=== PATIENT | male | born 1950 | race Caucasian/White ===

== ENCOUNTER 2021-02-25 12:50 | Outpatient (CLI) | payer MEDICARE, SELFPAY ==
--- NOTE | ~2021-02-25 | US_ITS ---
EXAMINATION: US carotid duplex BI DATE: 02/25/2021 13:41 INDICATION: Atherosclerosis. TECHNIQUE: Grayscale, color Doppler, and pulsed Doppler images of the cervical carotid arteries were obtained. The degree of vessel stenosis is placed in one of the following categories: normal, <50%, 5 0-69%, >=70% but less than near-occlusion, near-occlusion, or total occlusion. Note that percent sten osis relative to normal distal artery lumen diameter is indirectly measured from velocity measurement s as described by Alec, et al. Radiology 2003; 229:340-346. Notes: Normal: Peak systolic velocity <125 centimeters/sec and no plaque <50%. Peak systolic velocity <125 ( EDV <40; ICA/CCA PSV ratio <2.0; used these factors only a tandem lesions or low cardiac output or co ntralateral disease) 50-69 %: PSV 125-230 (EDV 40-100; ratio 2-4) >= 70% but less than near occlusion: PSV greater than 230 (EDV > 100; ratio> 4.0) Near Occlusion: PSV that is variable; markedly narrowed lumen Occlusion: Absent flow on color/spectral Doppler and no lumen on eubanks scale. COMPARISON: None. FINDINGS: RIGHT: The right common carotid artery (CCA) peak systolic velocity (PSV) is 86 cm/s. The right internal car otid artery (ICA) PSV is 114 cm/s. The right ICA end-diastolic velocity (EDV) is 44 cm/s. The right I CA/CCA PSV ratio is 1.3. The external carotid artery (ECA) PSV is 194 cm/s. There is antegrade flow i n the right vertebral artery. LEFT: The left CCA PSV is 98 cm/s. The left ICA PSV is 79 cm/s. The left ICA EDV is 22 cm/s. The left ICA/C CA PSV ratio is 0.8. The ECA PSV is 284 cm/s. There is antegrade flow in the left vertebral artery. IMPRESSION: 1. Less than 50% stenosis in the right internal carotid artery by sonographic criteria. 2. Less than 50% stenosis in the left internal carotid artery by sonographic criteria. Reviewed, dictated and finalized at location A. IMPRESSION: 1. Less than 50% stenosis in the right internal carotid artery by sonographic eliu jeffery. 2. Less than 50% stenosis in the left internal carotid artery by sonographic curtis calderon.
== END 2021-02-25 12:51 | disposition home or self-care (01) ==
PROVIDERS: PCP Internal Medicine; Visit Provider Internal Medicine
DX: R09.89 Other specified symptoms and signs involving the circulatory and respiratory systems (principal)
CPT/HCPCS: 93880

== ENCOUNTER 2022-12-20 08:23 | Outpatient (CLI) | payer MEDICARE, SELFPAY ==
[2022-12-20 09:16] LABS: Anion Gap 0 mmol/L (8-16); Blood Urea Nitrogen 15 mg/dL (9-20); Calcium 9.1 mg/dL (8.4-10.2); Carbon Dioxide 35 mmol/L (22-30); Chloride 99 mmol/L (98-107); Cholesterol 120 mg/dL (0-200); Estimated Glomerular Filt Rate > 60; Glucose 133 mg/dL (65-110); HDL Direct 53 mg/dL; Potassium 3.1 mmol/L (3.4-5.0); Sodium 134 mmol/L (137-145); Triglycerides 89 mg/dL (<150)
[2022-12-20 09:28] LABS: LDL Cholesterol Direct 42 mg/dL
[2022-12-20 09:40] LABS: Free T4 Free Thyroxine 1.51 ng/mL (0.78-2.19)
== END 2022-12-20 08:24 | disposition home or self-care (01) ==
LOC: ANHLAB 08:25
PROVIDERS: PCP Internal Medicine; Visit Provider Internal Medicine
DX: I10 Essential (primary) hypertension (principal); Z13.29 Encounter for screening for other suspected endocrine disorder; Z79.899 Other long term (current) drug therapy; E78.2 Mixed hyperlipidemia; E11.9 Type 2 diabetes mellitus without complications
CPT/HCPCS: 36415; 80048; 80061; 83036; 84439; 84443

== ENCOUNTER 2023-01-04 10:43 | Outpatient (CLI) | payer MEDICARE, SELFPAY ==
[2023-01-04 15:26] LABS: Potassium 3.2 mmol/L (3.4-5.0)
== END 2023-01-04 10:44 | disposition home or self-care (01) ==
LOC: ANHLAB 10:44
PROVIDERS: PCP Internal Medicine; Visit Provider Internal Medicine
DX: E87.6 Hypokalemia (principal)
CPT/HCPCS: 36415; 84132

== ENCOUNTER 2023-03-17 09:30 | Outpatient (CLI) | payer MEDICARE, SELFPAY ==
--- NOTE | ~2023-03-17 | US_ITS ---
Ultrasound of the Abdominal Aorta INDICATION: Abdominal aortic aneurysm TECHNIQUE: Grayscale, color Doppler, and pulsed Doppler images of the aorta and common iliac arteries were obtained. COMPARISON: None. FINDINGS: Maximum vascular dimensions are as follows: Proximal aorta: 2.1 cm Mid aorta: 1.7 cm Distal aorta: 1.5 cm Right common iliac artery: 1.0 cm Left common iliac artery: 0.8 cm There is no evidence of abdominal aortic aneurysm. IMPRESSION: No abdominal aortic aneurysm. Reviewed, dictated and finalized at location M.
--- NOTE | ~2023-03-17 | US_ITS ---
EXAMINATION: US carotid duplex BI DATE: 03/17/2023 11:04 INDICATION: Occlusion and stenosis of unspecified carotid artery TECHNIQUE: Grayscale, color Doppler, and pulsed Doppler images of the cervical carotid arteries were obtained. The degree of vessel stenosis is placed in one of the following categories: normal, <50%, 5 0-69%, >=70% but less than near-occlusion, near-occlusion, or total occlusion. Note that percent sten osis relative to normal distal artery lumen diameter is indirectly measured from velocity measurement s as described by Alec, et al. Radiology 2003; 229:340-346. COMPARISON: 02/25/2021 FINDINGS: RIGHT: The right common carotid artery (CCA) peak systolic velocity (PSV) is 83 cm/s. The right internal car otid artery (ICA) PSV is 68 cm/s. The right ICA end-diastolic velocity (EDV) is 17 cm/s. The right IC A/CCA PSV ratio is 0.8. Grayscale and color Doppler images yield an estimate of <50% diameter reducti on from plaque in the ICA. The external carotid artery (ECA) PSV is 170 cm/s. There is antegrade flow in the right vertebral artery. LEFT: The left CCA PSV is 92 cm/s. The left ICA PSV is 63 cm/s. The left ICA EDV is 23 cm/s. The left ICA/C CA PSV ratio is 0.7. Grayscale and color Doppler images yield an estimate of <50% diameter reduction from plaque in the ICA. The ECA PSV is 220 cm/s. There is antegrade flow in the left vertebral artery . IMPRESSION: 1. <50% stenosis in the right internal carotid artery. 2. <50% stenosis in the left internal carotid artery. Reviewed, dictated and finalized at location A.
== END 2023-03-17 09:31 | disposition home or self-care (01) ==
PROVIDERS: PCP Internal Medicine; Visit Provider Internal Medicine Cardiovascular Disease
DX: Z13.6 Encounter for screening for cardiovascular disorders (principal); R09.89 Other specified symptoms and signs involving the circulatory and respiratory systems; I65.23 Occlusion and stenosis of bilateral carotid arteries
CPT/HCPCS: 76706; 93880

== ENCOUNTER 2023-10-03 10:16 | Outpatient (CLI) | payer OTHER, SELFPAY ==
[2023-10-03 10:43] LABS: Basophils Absolute Auto 0.1 K/mm3 (0.0-0.1); Basophils Percent Auto 1.1 % (0.2-1.2); Eosinophils Absolute Auto 0.1 K/mm3 (0-0.3); Eosinophils Percent Auto 1.1 % (0-4.4); Hematocrit 49.3 % (42.0-52.0); Immature Granulocyte Percent A 1.2 % (0-0.5); Lymphocytes Absolute Auto 2.03 K/mm3 (0.9-3.2); Lymphocytes Percent Auto 24.6 % (18.3-44.2); Mean Corpuscular HGB Conc 34.5 g/dl (32-36); Mean Corpuscular Hemoglobin 30.4 pg (26-34); Mean Platelet Volume 10.9 fl (7.4-10.4); Monocytes Absolute Auto 0.6 K/mm3 (0.1-0.6); Monocytes Percent Auto 7.6 % (2.6-8.5); Neutrophils Absolute Auto 5.3 K/mm3 (1.3-6.7); Neutrophils Percent Auto 64.4 % (45.5-73.1); Platelet Count Result 207 k/mm3 (150-375); Red Cell Distribution Width 13.2 % (11.5-14.5); White Blood Count 8.3 K/mm3 (4.5-10.0)
[2023-10-03 11:00] LABS: Alanine Aminotransferase 22 U/L (6-50); Albumin Level 4.2 g/dL (3.5-5.1); Alkaline Phosphatase 153 U/L (38-126); Anion Gap 4 mmol/L (4-12); Aspartate Amino Transferase 22 U/L (17-59); Bilirubin,Total 1.3 mg/dL (0.2-1.3); Blood Urea Nitrogen 15 mg/dL (9-20); Calcium 9.4 mg/dL (8.4-10.2); Carbon Dioxide 31 mmol/L (22-30); Chloride 101 mmol/L (98-107); Estimated Glomerular Filt Rate > 60; Glucose 187 mg/dL (65-110); Potassium 3.5 mmol/L (3.4-5.0); Sodium 136 mmol/L (137-145)
[2023-10-03 11:26] LABS: Free T4 Free Thyroxine 1.56 ng/mL (0.78-2.19)
[2023-10-03 17:57] LABS: Hemoglobin A1C 6.9 % (<5.7)
[2023-10-03 22:10] LABS: Prostate Specific Antigen 0.3 ng/mL (< OR = 4.0)
== END 2023-10-03 10:17 | disposition home or self-care (01) ==
LOC: ANHLAB 10:20
PROVIDERS: PCP Internal Medicine; Visit Provider Internal Medicine
DX: E11.9 Type 2 diabetes mellitus without complications (principal); Z13.29 Encounter for screening for other suspected endocrine disorder; Z79.899 Other long term (current) drug therapy; Z12.5 Encounter for screening for malignant neoplasm of prostate; I10 Essential (primary) hypertension
CPT/HCPCS: 36415; 80053; 83036; 84153; 84439; 84443; 85025; G0103

== ENCOUNTER 2024-02-22 13:34 | Outpatient (CLI) | payer OTHER, SELFPAY ==
[2024-02-22 15:07] LABS: Alanine Aminotransferase 23 U/L (6-50); Alkaline Phosphatase 135 U/L (38-126); Anion Gap 9 mmol/L (4-12); Aspartate Amino Transferase 28 U/L (17-59); Blood Urea Nitrogen 20 mg/dL (9-20); Calcium 9.5 mg/dL (8.4-10.2); Carbon Dioxide 28 mmol/L (22-30); Chloride 98 mmol/L (98-107); Cholesterol 121 mg/dL (0-200); Estimated Glomerular Filt Rate > 60; Glucose 115 mg/dL (65-110); HDL Direct 58 mg/dL; Potassium 3.4 mmol/L (3.4-5.0); Sodium 135 mmol/L (137-145); Triglycerides 90 mg/dL (<150)
[2024-02-22 15:18] LABS: LDL Cholesterol Direct 47 mg/dL
[2024-02-22 15:25] LABS: Hemoglobin A1C 6.3 % (<5.7)
[2024-02-22 15:50] LABS: Creatinine Urine 150.7 mg/dL
[2024-02-22 15:54] LABS: MALB Creatinine Ratio 16.3 mg/g (0-30); Microalbumin Urine Random 24.6 mg/L (0-16.7)
== END 2024-02-22 13:35 | disposition home or self-care (01) ==
LOC: ANHLAB 13:39
PROVIDERS: PCP Internal Medicine; Visit Provider Internal Medicine
DX: E11.9 Type 2 diabetes mellitus without complications (principal); E78.5 Hyperlipidemia, unspecified; I10 Essential (primary) hypertension; I25.10 Atherosclerotic heart disease of native coronary artery without angina pectoris; Z00.00 Encounter for general adult medical examination without abnormal findings; Z79.899 Other long term (current) drug therapy
CPT/HCPCS: 36415; 80053; 80061; 82043; 83036

== ENCOUNTER 2024-07-01 09:22 | Outpatient (CLI) | payer OTHER, SELFPAY ==
[2024-07-01 09:46] LABS: Basophils Absolute Auto 0.1 K/mm3 (0.0-0.1); Basophils Percent Auto 1.3 % (0.2-1.2); Eosinophils Absolute Auto 0.1 K/mm3 (0-0.3); Eosinophils Percent Auto 1.2 % (0-4.4); Hematocrit 52.3 % (42.0-52.0); Hemoglobin 17.7 g/dL (14.0-18.0); Immature Granulocyte Absolute 0.09 K/mm3 (0.00-0.031); Lymphocytes Absolute Auto 2.53 K/mm3 (0.9-3.2); Lymphocytes Percent Auto 28.4 % (18.3-44.2); Mean Corpuscular HGB Conc 33.8 g/dl (32-36); Mean Corpuscular Hemoglobin 30.6 pg (26-34); Mean Corpuscular Volume 90.5 fl (80-100); Mean Platelet Volume 11.1 fl (7.4-10.4); Monocytes Absolute Auto 0.9 K/mm3 (0.1-0.6); Monocytes Percent Auto 9.9 % (2.6-8.5); Neutrophils Absolute Auto 5.2 K/mm3 (1.3-6.7); Neutrophils Percent Auto 58.2 % (45.5-73.1); Platelet Count Result 202 k/mm3 (150-375); Red Blood Count 5.78 M/mm3 (4.6-6.20); Red Cell Distribution Width 13.1 % (11.5-14.5); White Blood Count 8.9 K/mm3 (4.5-10.0)
[2024-07-01 10:00] LABS: Alanine Aminotransferase 21 U/L (6-50); Albumin Level 4.1 g/dL (3.5-5.1); Alkaline Phosphatase 139 U/L (38-126); Anion Gap 9 mmol/L (4-12); Aspartate Amino Transferase 22 U/L (17-59); Bilirubin,Total 1.4 mg/dL (0.2-1.3); Blood Urea Nitrogen 18 mg/dL (9-20); Carbon Dioxide 31 mmol/L (22-30); Chloride 97 mmol/L (98-107); Cholesterol 126 mg/dL (0-200); Estimated Glomerular Filt Rate > 60; Glucose 151 mg/dL (65-110); HDL Direct 57 mg/dL; Potassium 4.2 mmol/L (3.4-5.0); Sodium 137 mmol/L (137-145); Triglycerides 94 mg/dL (<150)
[2024-07-01 10:07] LABS: Hemoglobin A1C 6.7 % (<5.7)
[2024-07-01 10:11] LABS: LDL Cholesterol Direct 45 mg/dL
[2024-07-01 10:21] LABS: Free T4 Free Thyroxine 1.48 ng/dL (0.78-2.19)
[2024-07-01 10:57] LABS: Creatinine Urine 93.4 mg/dL
[2024-07-01 11:01] LABS: MALB Creatinine Ratio 12.6 mg/g (0-30); Microalbumin Urine Random 11.8 mg/L (0-16.7)
== END 2024-07-01 09:23 | disposition home or self-care (01) ==
LOC: ANHLAB 09:23
PROVIDERS: PCP Internal Medicine; Visit Provider Internal Medicine
DX: E78.5 Hyperlipidemia, unspecified (principal); I10 Essential (primary) hypertension; E11.9 Type 2 diabetes mellitus without complications; Z79.899 Other long term (current) drug therapy; Z13.29 Encounter for screening for other suspected endocrine disorder
CPT/HCPCS: 36415; 80053; 80061; 82043; 83036; 84439; 84443; 85025

== ENCOUNTER 2024-08-14 07:20 | Outpatient (CLI) | payer OTHER, SELFPAY ==
--- NOTE | ~2024-08-14 | US_ITS ---
EXAMINATION: US carotid duplex BI DATE: 08/14/2024 08:03 INDICATION: Occlusion and stenosis of unspecified carotid artery. TECHNIQUE: Grayscale, color Doppler, and pulsed Doppler images of the cervical carotid arteries were obtained. The degree of vessel stenosis is placed in one of the following categories: normal, <50%, 5 0-69%, >=70% but less than near-occlusion, near-occlusion, or total occlusion. Note that percent sten osis relative to normal distal artery lumen diameter is indirectly measured from velocity measurement s as described by Alec, et al. Radiology 2003; 229:340-346. COMPARISON: Ultrasound 03/17/2023 FINDINGS: RIGHT: The right common carotid artery (CCA) peak systolic velocity (PSV) is 81 cm/s. The right internal car otid artery (ICA) PSV is 116 cm/s. The right ICA end-diastolic velocity (EDV) is 43 cm/s. The right I CA/CCA PSV ratio is 1.4. Grayscale and color Doppler images yield an estimate of <50% diameter reduct ion from plaque in the ICA. There is antegrade flow in the right vertebral artery. LEFT: The left CCA PSV is 92 cm/s. The left ICA PSV is 120 cm/s. The left ICA EDV is 40 cm/s. The left ICA/ CCA PSV ratio is 1.3. Grayscale and color Doppler images yield an estimate of <50% diameter reduction from plaque in the ICA. There is antegrade flow in the left vertebral artery. IMPRESSION: 1. <50% stenosis in the right internal carotid artery. 2. <50% stenosis in the left internal carotid artery. Reviewed, dictated and finalized at location [] ES 7 8 TUTOR
--- OUTSIDE RECORDS SUMMARY | 2024-08-14 07:24 | XMS_ITS | Encounter Summary ---
Author Organization [facility] Address [address] [place] [address] Care Team Providers Care Desizing Machine Operator Name Role Phone Francisco Enriquez MD Primary Care Provider [phone] Encounter Details Date Type Department Care Team (Latest Contact Info) Description 12/04/2008 Outpatient Historical [facility], [address] Avni Bateman MD NO ADDRESS ON FILE Unspecified Essential Hypertension Social History Tobacco Use Types Packs/Day Years Used Date Smoking Tobacco: Never Assessed Sex and Gender Information Value Date Recorded Sex Assigned at Not on file Legal Sex Male 3:07 AM EQUINE VET Gender Identity Not on file Sexual Orientation Not on file documented as of this encounter Plan of Treatment Not on file documented as of this encounter Visit Diagnoses Diagnosis Unspecified essential hypertension documented in this encounter Care Teams Desizing Machine Operator Relationship Specialty Start Date End Date Francisco Enriquez MD PCP - General Student in an Organized Health Care Education/Training Program 06/20/17 documented as of this encounter
--- OUTSIDE RECORDS SUMMARY | 2024-08-14 07:24 | XMS_ITS | Encounter Summary ---
Author Organization [facility] Address 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 May We Leave Message At That Number : YES, LEAVE MESSAGE. Referring to: SLEEP STUDY [facility] ph: [phone] fax: [phone]. PLEASE SCHEDULE FOR: sleep study PATIENT DIAGNOSIS: . 780.57-SLEEP APNEA REQUESTED BY TELEPHONE: 's Response to Referral Request The requested referral is approved. Number of visits approved 3. ORDERING PHYSICIAN : KJ KELLY MD PRIORITY OF REFERRAL: AT PATIENT'S CONVENIENCE. OFFICE DIRECTOR OF CONTENT AND PROGRAMMING & PHONE: jeremiah [phone] FOR SCHEDULING USE ONLY FIRST ATTEMPT Date:JUN 21, 2007 Laverne Servin D 02:45 p Spoke with Patient. He will call back when he can get to his calendar SECOND ATTEMPT: Date:JUN 22, 2007 Bernadine Moulton A 04:13 p Left Message on Recorder. Sleep center closed as well LETTER SENT: Date JUN 25, 2007 Bernadine Moulton A 09:38 a Letter Sent to Patient. * Kj Kelly MD - 10/24/2007 5:54 PM CDT BLOOD PRESSURE: 124/86 Right Arm Sitting TEMPERATURE: 98.3??f Oral WEIGHT: 263lbs NURSE NAME: Batsheva Read ALLERGIES: No known drug allergies. TOBACCO USE Patient does not currently use tobacco. MEDICATIONS: Medication list current. CHIEF COMPLAINT Seen as a new patient to get established with the practice. general check up, pt stated he has few things he would like to discuss with you HISTORY: HISTORY: V70.0-ROUTINE GENERAL MEDICAL EXAMINATION concerned about skin tags and reported sleep apnea from PAST MEDICAL HISTORY: see patient sheet for review of med/all/pmh/psh/sh/fh/ros PHYSICAL EXAMINATION: CONSTITUTIONAL: GENERAL APPEARANCE: Healthy appearing patient in no distress. NECK/THYROID: Trachea midline. No thyroid enlargement, tenderness, or mass. No supraclavicular or cervical adenopathy. RESPIRATORY: Clear to auscultation and percussion. Normal respiratory effort. CARDIOVASCULAR: CARDIAC: Regular rhythm. No murmurs, rubs, or gallops. ARTERIAL: No aortic bruits. EDEMA/VARICOSITIES OF EXTREMITIES: No edema or varicosities. GASTROINTESTINAL: ABDOMEN: Soft, non-tender, without masses. Bowel sounds active. LIVER/SPLEEN/KIDNEY: No hepatosplenomegaly, tenderness or nodularity. Kidneys not palpable. GENITOURINARY: PROSTATE: Symmetrical and smooth with no nodularity or tenderness. cheilosis on lips, multiple skin tags ASSESSMENT/PLAN: 780.57-SLEEP APNEA LAB ORDERS: Order number: [id number] Test Ordered: SLEEP STUDY V70.0-ROUTINE GENERAL MEDICAL EXAMINATION MEDICATIONS: ECONAZOLE NITRATE EXTERNAL CREAME 1 %, apply twice daily, 30 Dispensed, 1 Fills, status: NEW PRESCRIPTION, 06/20/2007. LAB ORDERS: Order number: [id number] Test Ordered: COMPREHENSIVE METABOLIC PANEL & GFR 1112 Order number: [id number] Test Ordered: TSH (REFLEX FREE T4/FREE T3) 1727 Order number: [id number] Test Ordered: LIPID PANEL 1078 V76.44-SCREEN FOR CA OF PROSTATE LAB ORDERS: Order number: [id number] Test Ordered: PSA, TOTAL 1002 V76.51-SCREEN FOR CA OF COLON LAB ORDERS: Order number: [id number] Test Ordered: COLONOSCOPY SPECIALTY REFERRAL: DERMATOLOGY Dr. Jason Scott ph. [phone] fax: [phone]. HEALTH MAINTENANCE: LAST PROSTATE EXAM: 1999. DISCUSSED SMOKING: no. LAST TD: 1999 SEXUAL ACTIVITY DISCUSSED: no. SUBSTANCE ABUSE DISCUSSED: no. INJURY PREVENTION DISCUSSED: yes. DIET AND EXERCISE DISCUSSED: no. ADVANCED DIRECTIVES DISCUSSED: no. LAST DATE COLONOSCOPY: 1997?. LAST FLU VACCINE:no LAST PNEUMOCOCCAL:no Electronically Signed by: Kj Kelly MD on Wednesday, June 20, 2007 documented in this encounter Plan of Treatment Not on file documented as of this encounter Visit Diagnoses Not on filedocumented in this encounter Care Teams Traction Power Engineer Relationship Specialty Start Date End Date Francisco Enriquez MD PCP - General Student in an Organized Health Care Education/Training Program 06/20/17 documented as of this encounter
--- OUTSIDE RECORDS SUMMARY | 2024-08-14 07:24 | XMS_ITS | Encounter Summary ---
Author Organization [facility] Address [address] [place] [address] Care Team Providers Care Machine Binder Stripper Name Role Phone Francisco Enriquez MD Primary Care Provider [phone] Encounter Details Date Type Department Care Team (Late st Contact Info) Description 06/06/2007 Outpatient Historical [facility] Primary Care - [address] [place] [address] Kj Kelly MD [address] [facility] [address] [place], [place] [id number] Social History Tobacco Use Types Packs/Day Years Used Date Smoking Tobacco: Never Assessed Sex and Gender Information Value Date Recorded Sex Assigned at Not on file 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
--- OUTSIDE RECORDS SUMMARY | 2024-08-14 07:24 | XMS_ITS | Referral Summary ---
Author Organization [facility] Address [address] [place] [address] Care Team Providers Care Development Technical Lead Name Role Phone Gunjan Madison Unavailable Unavailable Source Comments [facility],non-owned Affiliates and Associated Physician Practices is amultiple site organization consisting of ambulatory clinics and hospital sitesin [place], [place], [place] and [place]. This disclosure is being madepursuant to the Care Everywhere program and may not contain all information available regarding this patient. Last updated 18.[facility] Allergies Active Allergy Reactions Criticality Noted Date Comments Lisinopril Other Low 01/05/2009 Medications * Be aware that medications may not be up to date on this document. Alwaysverify current medications with the patient. Medication Sig Dispensed Refills Start Date End Date Status atorvastatin (LIPITOR) 10 MG tabletIndications:T ype 2 diabetes mellitus without complication, without long-term current use of insulin ([facility]) Take 1 tablet by mouth once daily 90 tablet 4 04/15/2020 Active Blood Glucose Monitoring Suppl (ONE TOUCH ULTRA MINI) w/Device KIT Use 1 Each as directed 1 kit 12/17/2020 Active blood glucose (ONETOUCH ULTRA) test stripIndications:Ty pe 2 diabetes mellitus without complication, without long-term current use of insulin (HCC) Use 1 (one) strip once daily 100 strip 12/23/2020 Active metFORMIN ER 24hr (GLUCOPHAGE XR) 500 MG tabletIndications:T ype 2 diabetes mellitus without complication, without long-term current use of insulin (HCC) Take 2 (two) tablets by mouth 2 times daily 360 tablet 03/31/2021 Active glimepiride (AMARYL) 4 MG tabletIndications:T ype 2 diabetes mellitus without complication, without long-term current use of insulin (HCC) Take 1 (one) tablet by mouth 2 times daily after meals 180 tablet 03/31/2021 Active chlorthalidone (HYGROTON) 25 MG tabletIndications:E ssential (primary) hypertension Take 1 (one) tablet by mouth once daily 90 tablet 03/31/2021 Active losartan (COZAAR) 100 MG tabletIndications:E ssential (primary) hypertension Take 1 (one) tablet by mouth once daily Patient needs appointment 90 tablet 04/05/2021 Active Active Problems Patient Care Coordination No te Formatting of this note migh t be different from the original. Patient enrolled in EpxHTN program to record and monitor BP readings. Problem Noted Date Diagnosed Date Type 2 diabetes mellitus without complications 0 12/19/2016 Assessment & Plan (04/15/2020 5:49 PM SHELL MOLDING ROLLER BLAST OPERATOR): Doing much better. Continue current medications and advised on lifestyle modifications. Assessment & Plan (07/10/2019 10:05 PM SHELL MOLDING ROLLER BLAST OPERATOR): A1c significantly higher than normal for him, most likely due to dietary indiscretion and lack of activity. He is committed to improving this and will work on it for the next few months. Return in about 3 months (around 10/09/2019) for f/u DM. Assessment & Plan (08/13/2018 10:49 AM SHELL MOLDING ROLLER BLAST OPERATOR): A1c essentially the same as previously. Blood glucose improving at home with improved diet, but still above goal. Will increase glimepiride dose. Return in about 6 weeks (around 09/24/2018) for f/u HTN, f/u DM. Essential (primary) hypertension 12/19/2016 Assessment & Plan (04/15/2020 5:49 PM SHELL MOLDING ROLLER BLAST OPERATOR): Good control on current medications. Continue to monitor Assessment & Plan (07/10/2019 10:05 PM SHELL MOLDING ROLLER BLAST OPERATOR): Also higher than normal. Returning to higher dose of chlorthalidone. Continue to monitor at home. Return in about 3 months (around 10/09/2019) for f/u DM. Assessment & Plan (08/13/2018 10:50 AM SHELL MOLDING ROLLER BLAST OPERATOR): High today. Would prescribe amlodipine, but Mr. Peña has significant history of lower extremity edema, so may not be best option. Will refer to [facility] for now, and consider adding beta-marycruz or spironolactone at next visit, if needed. Obesity (BMI 30-39.9) 07/20/2015 Adenoma of large intestine 08/22/2014 Sleep apnea 06/20/2007 Overview (08/13/2018): On CPAP. Screen for colon cancer History of colon polyps Immunizations Name Administration Dates Next Due INFLUENZA VACCINE 02/27/2021 PNEUMOCOCCAL PPSV23 09/24/2018,10/04/2011 Pneumococcal Pcv13 Conj 03/17/2017 Social History Tobacco Use Types Packs/Day Years Used Date Smoking Tobacco: Never Smokeless Tobacco: Never Alcohol Use Standard Drinks/Week Comments Yes 2 (1 standard drink = 0.6 oz pur e alcohol) every 2-3 months Sex and Gender Information Value Date Recorded Sex Assigned at Not on file Gender Identity Not on file Sexual Orientation Not on file Last Filed Vital Signs Vital Sign Reading Time Taken Comments Blood Pressure 134/86 04/15/2020 3:33 PM SHELL MOLDING ROLLER BLAST OPERATOR Pulse 84 04/15/2020 3:33 PM SHELL MOLDING ROLLER BLAST OPERATOR Temperature 36.2 C (97.1 F) 04/15/2020 3:33 PM SHELL MOLDING ROLLER BLAST OPERATOR Respiratory Rate 12 09/19/2018 3:05 PM CDT Oxygen Saturation 98% 04/15/2020 3:33 PM SHELL MOLDING ROLLER BLAST OPERATOR Inhaled Oxygen Concentration - - Weight 107.6 kg (237 lb 3.2 oz) 04/15/2020 3:33 PM SHELL MOLDING ROLLER BLAST OPERATOR Height 167.6 cm (5' 6 ) 04/15/2020 3:33 PM SHELL MOLDING ROLLER BLAST OPERATOR Body Mass Index 38.29 04/15/2020 3:33 PM SHELL MOLDING ROLLER BLAST OPERATOR Plan of Treatment Not on file Goals Goal Patient Goal Type Associated Problems Recent Progress Patient-Stated? Author Blood Pressure < 140/90 Blood Pressure 134/86(2019 3:33 PM SHELL MOLDING ROLLER BLAST OPERATOR) Yes Gunjan Madison Note: Patient enrolled in EpxN program to track and monitor at home BP readings. Procedures Procedure Name Priority Date/Time Associated Diagnosis Comments EYE EXAM 09/03/2020 BASIC METABOLIC PANEL (CALCIUM TOTAL) Routine 05/20/2020 2:19 PM SHELL MOLDING ROLLER BLAST OPERATOR Essential (primary) hypertension HEMOGLOBIN A1C - POINT OF CARE (AMB) [facility] Routine 04/15/2020 Type 2 diabetes mellitus without complication, without long-term current use of insulin (HCC) ENDOSCOPY, COLON, SCREENING Routine 09/19/2018 1:54 PM CDT HEPATITIS C AB W RFLX VERIFICATION Routine 11/01/2017 1:23 PM CDT Need for hepatitis C screening test from Last 3 Months or Most Recently Relevant to Health Maintenance Results * EYE EXAM (09/03/2020) Anatomical Region Laterality Modality Other Narrative 09/03/2020 Ordered by an unspecified provider. Scanned Document SCANNING ONLY * (ABNORMAL) BASIC METABOLIC PANEL (CALCIUM TOTAL) (05/20/2020 2:19 PM SHELL MOLDING ROLLER BLAST OPERATOR) Glucose 126(H) 65 - 99 mg/dL [facility] INSURANCE BILL BUN 15 8 - 27 mg/dL [facility] INSURANCE BILL Creatinine 1.02 0.76 - 1.27 mg/dL [facility] INSURANCE BILL eGFR by MDRD 75 >59 mL/min/1.7 3 [facility] INSURANCE BILL eGFR by MDRD 87 >59 mL/min/1.7 3 [facility] INSURANCE BILL BUN/Creatinine Ratio 15 10 - 24 [facility] INSURANCE BILL Sodium 142 134 - 144 mmol/L [facility] INSURANCE BILL Potassium 4.0 3.5 - 5.2 mmol/L [facility] INSURANCE BILL Chloride 100 96 - 106 mmol/L [facility] INSURANCE BILL CO2 29 20 - 29 mmol/L [facility] INSURANCE BILL Calcium 9.9 8.6 - 10.2 mg/dL [facility] INSURANCE BILL Comment:FASTING Blood BLOOD SPECIMEN / Unknown 05/20/2020 2:19 PM SHELL MOLDING ROLLER BLAST OPERATOR 05/20/2020 Narrative Resulting Agency Comment [facility]: [facility] [address] [facility] [id number] Francisco Enriquez MD LAB - CHEMISTRY [facility] INSURANCE BILL [address] [facility] [place] [address] * HEMOGLOBIN A1C - POINT OF CARE (AMB) [facility] (04/15/2020) Hemoglobin A1c POCT 6.2 BLOOD SPECIMEN / Unknown 04/15/2020 Francisco Enriquez MD LAB - POINT OF CARE ORDERABLES * ENDOSCOPY, COLON, SCREENING (09/19/2018 1:54 PM CDT) Report Endoscopy POC _ Patient Name: Mauricio Peña Procedure Date: 09/19/2018 1:54 PM Date of : 1950 Admit Type: Outpatient Age: 68 Gender: Male Attending MD: Francia Prieto MD _ Procedure: Colonoscopy Indications: Surveillance: Personal history of adenomatous polyps on last colonoscopy > 3 years ago (2014) Providers: Francia Prieto MD (Doctor), Madeline Bland, RN Referring MD: Francisco Enriquez (Referring MD) Medicines: Monitored Anesthesia Care Complications: No immediate complications. _ Procedure: Pre-Anesthesia Assessment: - Prior to the procedure, a History and Physical was performed, and patient medications, allergies and sensitivities were reviewed. The patient's tolerance of previous anesthesia was reviewed. - The risks and benefits of the procedure and the sedation options and risks were discussed with the patient. All questions were answered and informed consent was obtained. After I obtained informed consent, the scope was passed under direct vision. Throughout the procedure, the patient's blood pressure, pulse, and oxygen saturations were monitored continuously. The Colonoscope was introduced through the anus and advanced to the cecum, identified by appendiceal orifice and ileocecal valve. The colonoscopy was performed without difficulty. The patient tolerated the procedure well. The quality of the bowel preparation was good. Impression: - Three 2 to 6 mm polyps in the sigmoid colon and in the transverse colon, removed with a jumbo cold forceps. Resected and retrieved. - Diverticulosis in the sigmoid colon. - The examination was otherwise normal on direct and retroflexion views. Findings: The perianal and digital rectal examinations were normal. Three sessile polyps were found in the sigmoid colon and transverse colon. The polyps were 2 to 6 mm in size. These polyps were removed with a jumbo cold forceps. Resection and retrieval were complete. A few small-mouthed diverticula were found in the sigmoid colon. The exam was otherwise without abnormality on direct and retroflexion views. _ Recommendation: - Discharge patient to home. - Resume previous diet today. - Continue present medications. - Await pathology results. - Repeat colonoscopy in 5 years for surveillance. Procedure Code(s): --- Professional --- 70319, Colonoscopy, flexible; with biopsy, single or multiple --- Technical --- 81609, Colonoscopy, flexible; with biopsy, single or multiple Diagnosis Code(s): --- Professional --- Z86.010, Personal history of colonic polyps D12.5, Benign neoplasm of sigmoid colon D12.3, Benign neoplasm of transverse colon (hepatic flexure or splenic flexure) K57.30, Diverticulosis of large intestine without perforation or abscess without bleeding --- Technical --- Z86.010, Personal history of colonic polyps D12.5, Benign neoplasm of sigmoid colon D12.3, Benign neoplasm of transverse colon (hepatic flexure or splenic flexure) K57.30, Diverticulosis of large intestine without perforation or abscess without bleeding CPT copyright 2017 [employer]. All rights reserved. The codes documented in this report are preliminary and upon antique furniture restorer review may be revised to meet current compliance requirements. __ Francia Prieto MD 09/19/2018 2:33:58 PM This report has been signed electronically. Number of Addenda: 0 Note Initiated On: 09/19/2018 1:54 PM [facility] 09/19/2018 1:54 PM CDT Francia Vazquez MD GI PROCEDURE [facility] * HEPATITIS C AB W RFLX VERIFICATION (11/01/2017 1:23 PM CDT) Hepatitis C Antibody <0.1 0.0 - 0.9 s/co ratio [facility] INSURANCE BILL Blood BLOOD SPECIMEN / Unknown 11/01/2017 1:23 PM CDT 11/01/2017 Narrative Resulting Agency Comment [facility] [address] [facility] [id number] Francisco Enriquez MD LAB - CHEMISTRY [facility] INSURANCE BILL [address] [place] [address] from Last 3 Months or Most Recently Relevant to Health Maintenance Care Teams Development Technical Lead Relationship Specialty Start Date End Date Gunjan Madison Care Coordination Specialist Care Management 08/21/18
--- OUTSIDE RECORDS SUMMARY | 2024-08-14 07:24 | XMS_ITS | Clinical Summary ---
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 5 Active losartan-hydroCH LOROthiazide (HYZAAR) 100-25 mg tabletIndication s:Secondary hypertension, unspecified Take 1 Tablet by mouth daily. 90 Tablet 2 7 Active Additional Information Patient taking differently:1 Tablet OralDAILY AT BEDTIME, Reported on 11/02/2016 metFORMIN (GLUCOPHAGE XR) 500 mg Extended Release 24 hour tablet Take 2 Tablets (1,000 mg) by mouth daily. 1 Tablet 7 Active Additional Information Patient taking differently: 500 mgOralTWO TIMES DAILY WITH MEALS, Reported on 11/02/2016 glimepiride (AMARYL) 2 mg tablet Take 1 Tablet (2 mg) by mouth daily with breakfast. 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) 10/04/2011 Hypertension 12/04/2008 Sleep apnea 06/20/2007 Resolved Problems Problem Noted Date Diagnosed Date Resolved Date Inguinal hernia, left 10/21/20162016 Morbid obesity with BMI of 40.0-44.9, adult 07/20/2015 07/20/2015 Uncontrolled type 1 diabetes mellitus 01/25/2011 07/20/2015 Newly diagnosed diabetes 01/20/2011 Hypokalemia 01/20/2011 01/25/2011 DKA (diabetic ketoacidoses) 01/18/2011 01/26/2011 Leukocytosis 01/18/2011 01/26/2011 HTN (hypertension) 01/18/2011 1 Dehydration 01/18/2011 01/25/2011 S/P cholecystectomy 01/05/2009 01/26/20 11 Overview (01/05/2009): [facility] - taken out due to pancreatitis Pancreatitis 01/05/2009 02/08/2012 Overview (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 Routine general medical exam ination at a health care facility 06/20/2007 01/25/2011 Special screening for malign ant neoplasm of prostate 06/20/2007 01/25/2011 Special screening for malign ant neoplasms, colon 06/20/2007 01/25/2011 Overview (01/05/2009): Normal egd/colonoscopy approx 2003 per patient Immunizations Immunization Administration Dates Next Due (PNEUMOVAX 23)(50 YRS UP) PN EUMOCOCCAL POLYSACCHARIDE (PPV23) 0.5 ML, IM 10/04/2011 Family History Medical History Relation Name Comments Healthy Father Heart Disease Mother Stroke Mother Colon Cancer Neg Hx Relation Name Status Comments Brother 1 Alive Brother 2 Alive Brother 3 Alive Brother 4 Alive Brother 5 Alive Father Mother (Age 57) Sister 1 Alive Sister 2 Alive Sister 3 Alive Social History Tobacco Use Types Packs/Day Years Used Date Smoking Tobacco: Never Smokeless Tobacco: Never Alcohol Use Standard Drinks/Week Comments Yes 0 (1 standard drink = 0.6 oz pur e alcohol) rarely Sex and Gender Information Value Date Recorded Sex Assigned at Not on file 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 Gender Identity Not on file Sexual Orientation Not on file Last Filed Vital Signs Vital Sign Reading Time Taken Comments Blood Pressure 129/85 12/19/2016 1:40 PM CDT rt wrist Pulse 87 12/19/2016 1:40 PM CDT Temperature 37.6 C (99.6 F) 11/10/2016 7:22 AM CDT Respiratory Rate 18 11/10/2016 7:22 AM CDT Oxygen Saturation 93% 11/10/2016 7:22 AM CDT Inhaled Oxygen Concentration - - Weight 112 kg (247 lb) 12/19/2016 1:40 PM CDT Height 167.6 cm (5' 6 ) 12/19/2016 1:40 PM CDT Body Mass Index 39.87 12/19/2016 1:40 PM CDT Plan of Treatment Health Maintenance Due Date Last Done Comments DTAP/TDAP/TD VACCINES (1 - Tdap) 02/10/1971 FIT-DNA Q 3 years 02/10/1997 FIT/FOBT Q 1 year 02/10/1997 Flex Sig/CT Colonography Q 5 years 02/10/1997 ZOSTER VACCINE (1 of 2) 02/10/2002 RSV VACCINE (60+ or ) (1 - Risk 60-74 years 1-dose series) 2012 DIABETES MICROALBUMIN ANNUAL SCREEN 01/17/2017 01/18/2016, 01/12/2015, 11/29/2013, Additional history exists LDL CHOLESTEROL ANNUAL 01/17/2017 6, 01/12/2015, 11/29/2013, Additional history exists DIABETES ANNUAL FOOT EXAM 07/10/20202019, 01/18/2016, 03/04/2014, Additional history exists DIABETES HBA1C Q 6 MONTHS 10/13/20202019, 09/09/2016, 01/18/2016, Additional history exists DIABETES ANNUAL RETINAL EXAM 09/03/2021 09/03/2020, 01/16/2012 COLORECTAL SCREENING 09/19/2021 09/19/2018, 08/15/2014, 08/15/2014, Additional history exists Colorectal Cancer Screening 09/19/2021 INFLUENZA VACCINE (#1) 2024 PNEUMOCOCCAL VACCINE 50+ YEARS Completed 0 09/24/2018, 03/17/2017, 10/04/2011 Medical Devices Implanted Type Area Tank Worker Device Identifier Shelf Expiration Date Model / Serial / Lot Mesh Plug Perfix [id number] - [id number] Implanted:Qty : 1 on 11/09/2016 by Isaac Morales MD at [facility] Mesh Left: Inguinal [employer] [id number] 05/09/2021 [id number] / / [id number] Procedures Procedure Name Priority Date/Time Associated Diagnosis Comments HEMOGLOBIN A1C Routine 09/09/2016 11:41 AM CDT Type 2 diabetes mellitus without complication, without long-term current use of insulin ([facility]/HCC) MICROALBUMIN/CREATI NINE RATIO, RANDOM UR Routine 01/18/2016 10:36 AM CDT Type 2 diabetes mellitus without complication ([facility]/HCC) LIPID PANEL Routine 01/18/2016 10:36 AM CDT Type 2 diabetes mellitus without complication ([facility]) from Last 3 Months or Most Recently Relevant to Health Maintenance Results * (ABNORMAL) HEMOGLOBIN A1C (09/09/2016 11:41 AM CDT) HEMOGLOBIN A1C 7.9(H) 4.0 - 6.0 % 09/09/2016 3:45 PM CDT [facility] Comment:Note: Effective as o f 07/03/2015 a new methodology, Turbidimetric inhibition immunoassay (TINIA),has been implemented. EST. AVG GLUCOSE, A1C 180 mg/dL 09/09/2016 3:45 PM CDT [facility] Blood Venipuncture / Unknown 09/09/2016 11:41 AM CDT 09/09/2016 2:25 PM CDT us Avni Bateman MD CHEMISTRY ORDERABLES Final Re sult [facility] CLIA# [id number] [address] [place] [address] * MICROALBUMIN/CREATININE RATIO, RANDOM UR (01/18/2016 10:36 AM CDT) Creatinine, Urine 233 20 - 370 mg/dL [employer] [facility] Comment: Test Performed at: [employer] [facility] [address] NEGRO RODRIGUEZ DO,MPH MICROALBUMIN, URINE 1.1 mg/dL [employer] [facility] Comment: Reference Range Not established Test Performed at: [employer] [facility] [address] NEGRO RODRIGUEZ DO,MPH MICROALBUMIN/CREAT RATIO, UR 5 <30 mcg/mg creat [employer] [facility] Comment: The ADA defines abnormalities in albumin excretion as follows: Category Result (mcg/mg creatinine) Normal <30 Microalbuminuria 30-299 Clinical albuminuria > OR = 300 The ADA recommends that at least two of three specimens collected within a 3-6 month period be abnormal before considering a patient to be within a diagnostic category. Urine specimen (specimen) URINE SPECIMEN OBTAINED BY CLEAN CATCH PROCEDURE / Unknown 01/18/2016 10:36 AM CDT us Avni Bateman MD URINE ORDERABLES Final Result Performing Organization Address City/State/[facility] Co de Phone Number [employer] [facility] [address] [place] [address] * LIPID PANEL (01/18/2016 10:36 AM CDT) CHOLESTEROL 157 125 - 200 mg/dL [employer] [facility] Comment: Test Performed at: [employer] [facility] [address] NEGRO RODRIGUEZ DO,MPH HDL 41 > OR = 40 mg/dL [employer] [facility] TRIGLYCERIDE 127 <150 mg/dL [employer] [facility] LDL CALCULATED 91 <130 mg/dL (calc) [employer] [facility] Comment: Desirable range <100 mg/dL for patients with CHD or diabetes and <70 mg/dL for diabetic patients with known heart disease. CHOL/HDL RATIO 3.8 < OR = 5.0 (calc) [facility] [employer] [facility] TOTAL NON-HDL CHOL(LDL+VLDL) 116 mg/dL (calc) [facility] Comment: Target for non-HDL cholesterol is 30 mg/dL higher than LDL cholesterol target. Blood specimen (specimen) 01/18/2016 10:36 AM CDT us Avni Bateman MD CHEMISTRY ORDERABLES Final Re sult [facility] [facility] [address] [place] [address] from Last 3 Months or Most Recently Relevant to Health Maintenance Insurance Advance Directives For more information, please contact: [phone] Documents on File Type Date Recorded Patient Operator Prefinish Expl anation Advance Directive POA 07/08/2014 10:55 AM Advance Directive Living Will 07/08/2014 * Full Code (Latest Code Status on File) Date Activated Date Inactivated Comments 11/09/2016 3:52 PM 11/10/2016 2:20 PM * Full Code Date Activated Date Inactivated Comments 11/09/2016 11:22 AM 11/09/2016 3:52 PM * Full Code Date Activated Date Inactivated Comments 08/15/2014 11:40 AM 08/15/2014 3:33 PM * Full Code Date Activated Date Inactivated Comments 01/18/2011 1:29 PM 01/21/2011 11:32 AM Care Teams Resource Conservation Specialist Relationship Specialty Start Date End Date Francisco Enriquez MD PCP - General Student in an Organized Health Care Education/Training Program 06/20/17
--- OUTSIDE RECORDS SUMMARY | 2024-08-14 07:24 | XMS_ITS | Encounter Summary ---
Author Organization [facility] Address [address] [place] [address] Care Team Providers Care Manager Electrical Name Role Phone Francisco Enriquez MD Primary Care Provider [phone] Encounter Details Date Type Department Care Team (Late st Contact Info) Description 06/20/2007 Outpatient Historical [facility] - [address] [place] [address] Kj Kelly MD [address] [place] [address] Special Screening for Malignant Neoplasm of Prostate Social History Tobacco Use Types Packs/Day Years Used Date Smoking Tobacco: Never Assessed Sex and Gender Information Value Date Recorded Sex Assigned at Not on file 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 Gender Identity Not on file Sexual Orientation Not on file documented as of this encounter Last Filed Vital Signs Vital Sign Reading Time Taken Comments Blood Pressure 124/86 06/20/2007 11:15 AM STAMP MACHINE SERVICER Pulse - - Temperature 36.8 C (98.3 F) 06/20/2007 11:15 AM STAMP MACHINE SERVICER Respiratory Rate - - Oxygen Saturation - - Inhaled Oxygen Concentration - - Weight 119.3 kg (263 lb) 06/20/2007 11:15 AM STAMP MACHINE SERVICER Height - - Body Mass Index - - documented in this encounter Plan of Treatment Not on file documented as of this encounter Procedures Procedure Name Priority Date/Time Associated Diagnosis Comments TSH WITH REFLEX FT4 AND FT3 Routine 06/20/2007 3:57 PM STAMP MACHINE SERVICER PSA Routine 06/20/2007 3:57 PM STAMP MACHINE SERVICER LIPID PANEL Routine 06/20/2007 3:57 PM STAMP MACHINE SERVICER COMPREHENSIVE METABOLIC PANEL Routine 06/20/2007 3:57 PM STAMP MACHINE SERVICER documented in this encounter Results * TSH WITH REFLEX FT4 AND FT3 (06/20/2007 3:57 PM STAMP MACHINE SERVICER) TSH 2.62 0.27 - 4.20 uU/mL INTERFACE SYSTEM 06/20/2007 3:57 PM STAMP MACHINE SERVICER us Kj Kelly MD CHEMISTRY ORDERABLES Edited INTERFACE SYSTEM Refer to clinic/hospital department * (ABNORMAL) COMPREHENSIVE METABOLIC PANEL (06/20/2007 3:57 PM STAMP MACHINE SERVICER) GLUCOSE 111(H) 65 - 99 mg/dL INTERFACE SYSTEM CREATININE 0.75 0.67 - 1.17 mg/dL INTERFACE SYSTEM CALCIUM 8.9 8.4 - 10.2 mg/dL INTERFACE SYSTEM ALKALINE PHOSPHATASE 140(H) 40 - 129 U/L INTERFACE SYSTEM AST 22 12 - 38 U/L INTERFACE SYSTEM ALT 29 0 - 41 U/L INTERFACE SYSTEM TOTAL PROTEIN 7.3 6.3 - 8.6 g/dL INTERFACE SYSTEM ALBUMIN 4.1 3.4 - 4.8 g/dL INTERFACE SYSTEM BILIRUBIN TOTAL 0.5 0.2 - 1.0 mg/dL INTERFACE SYSTEM BUN 9 6 - 20 mg/dL INTERFACE SYSTEM SODIUM 137 135 - 145 mmol/L INTERFACE SYSTEM POTASSIUM 3.8 3.5 - 4.9 mmol/L INTERFACE SYSTEM CHLORIDE 102 96 - 108 mmol/L INTERFACE SYSTEM CO2 26 22 - 30 mmol/L INTERFACE SYSTEM GFR, >60 >=60 mL/min/1. 7 sq meter INTERFACE SYSTEM GFR >60 >=60 mL/min/1. 7 sq meter INTERFACE SYSTEM Comment: Estimated GFR rate interpretative information for both Americans and non- Americans is available on the [facility] Intranet at: [email or web address] Select: Lab Policies and Procedures Select: Reference Ranges - GFR 06/20/2007 3:57 PM STAMP MACHINE SERVICER Result [facility] Kj Klely MD CHEMISTRY ORDERABLES Edited Performing Organization Address [facility] Co de Phone Number INTERFACE SYSTEM Refer to clinic/hospital department * (ABNORMAL) LIPID PANEL (06/20/2007 3:57 PM STAMP MACHINE SERVICER) CHOLESTEROL 182 100 - 199 mg/dL INTERFACE SYSTEM TRIGLYCERIDE 158(H) 10 - 149 mg/dL INTERFACE SYSTEM HDL 44 40 - 59 mg/dL INTERFACE SYSTEM CHOL/HDL RATIO 4.1 2.0 - 5.0 INTER FACE SYSTEM LDL CALCULATED 106(H) <=99 mg/dL INTERFACE SYSTEM LIPID PANEL COMMENT See Below INTERFACE SYSTEM Comment: The adult ATP and pediatric NCEP classifications for lipids are available on the [facility] Intranet at: [email or web address] Select: Lab Policies and Procedures,Current Select: Lipid Panel Interpretation 06/20/2007 3:57 PM STAMP MACHINE SERVICER Result [facility] Kj Kelly MD CHEMISTRY ORDERABLES Edited Performing Organization Address [facility] Phone Number INTERFACE SYSTEM Refer to clinic/hospital department * PSA (06/20/2007 3:57 PM STAMP MACHINE SERVICER) PSA 0.3 0.0 - 4.0 ng/mL INTERFACE SYSTEM Comment:Performed on [employer] E170 System 06/20/2007 3:57 PM STAMP MACHINE SERVICER Result [facility] us Kj Kelly MD CHEMISTRY ORDERABLES Edited Performing Organization Address City/[facility] Co de Phone Number INTERFACE SYSTEM Refer to clinic/hospital department documented in this encounter Visit Diagnoses Diagnosis Special screening for malignant neoplasm of prostate documented in this encounter Care Teams Manager Electrical Relationship Specialty Start Date End Date Francisco Enriquez MD PCP - General Student in an Organized Health Care Education/Training Program 06/20/17 documented as of this encounter
--- OUTSIDE RECORDS SUMMARY | 2024-08-14 07:24 | XMS_ITS | Encounter Summary ---
Author Organization [facility] Address [address] [place] [address] Care Team Providers Care Supervisor Incising Name Role Phone Francisco Enriquez MD Primary Care Provider [phone] Encounter Details Date Type Department Care Team (Late st Contact Info) Description 07/22/2007 Outpatient [facility] [address] 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
--- OUTSIDE RECORDS SUMMARY | 2024-08-14 07:24 | XMS_ITS | Patient Health Summary ---
Author Organization [facility] Address [address] [place] [address] Care Team Providers Care Title Examiner Name Role Phone Gunjan Madison Unavailable Unavailable Note from [facility],non-owned Affiliates and Associated Physician Practices is amultiple site organization consisting of ambulatory clinics and hospital sitesin [place], [place], [place] and [place]. This disclosure is being madepursuant to the Care Everywhere program and may not contain all information available regarding this patient. Last updated 18.[facility] Allergies * Lisinopril(Other) -Low Criticality Medications * Be aware that medications may not be up to date on this document. Alwaysverify current medications with the patient. * atorvastatin (LIPITOR) 10 MG tablet(Started 04/15/2020) Take 1 tablet by mouth once daily 4 refills by 04/15/2021 * Blood Glucose Monitoring Suppl (ONE TOUCH ULTRA MINI) w/Device KIT(Started 12/17/2020) Use 1 Each as directed * blood glucose (ONETOUCH ULTRA) test strip(Started 12/23/2020) Use 1 (one) strip once daily * metFORMIN ER 24hr (GLUCOPHAGE XR) 500 MG tablet(Started 03/31/2021) Take 2 (two) tablets by mouth 2 times daily * glimepiride (AMARYL) 4 MG tablet(Started 03/31/2021) Take 1 (one) tablet by mouth 2 times daily after meals * chlorthalidone (HYGROTON) 25 MG tablet(Started 03/31/2021) Take 1 (one) tablet by mouth once daily * losartan (COZAAR) 100 MG tablet(Started 04/05/2021) Take 1 (one) tablet by mouth once daily Patient needs appointment Active Problems Problem Noted Date Diagnosed Date Type 2 diabetes mellitus without complications 0 12/19/2016 Essential (primary) hypertension 12/19/2016 Obesity (BMI 30-39.9) 07/20/2015 Adenoma of large intestine 08/22/2014 Sleep apnea 06/20/2007 Screen for colon cancer History of colon polyps Immunizations * INFLUENZA VACCINE(Given 02/27/2021) * PNEUMOCOCCAL PPSV23(Given 09/24/2018, 10/04/2011) * Pneumococcal Pcv13 Conj(Given 03/17/2017) Social History Tobacco Use Types Packs/Day Years [...] Comments Blood Pressure 134/86 04/15/2020 3:33 PM GRANULATOR Pulse 84 04/15/2020 3:33 PM GRANULATOR Temperature 36.2 C (97.1 F) 04/15/2020 3:33 PM GRANULATOR Respiratory Rate 12 09/19/2018 3:05 PM CDT Oxygen Saturation 98% 04/15/2020 3:33 PM GRANULATOR Inhaled Oxygen Concentration - - Weight 107.6 kg (237 lb 3.2 oz) 04/15/2020 3:33 PM GRANULATOR Height 167.6 cm (5' 6 ) 04/15/2020 3:33 PM GRANULATOR Body Mass Index 38.29 04/15/2020 3:33 PM GRANULATOR Procedures * EYE EXAM(Performed 09/03/2020) * LIPID PROFILE(Performed 05/20/2020) Performed for Essential (primary) hypertension * BASIC METABOLIC PANEL (CALCIUM TOTAL)(Performed 05/20/2020) Performed for Essential (primary) hypertension * HEMOGLOBIN A1C - POINT OF CARE (AMB) [facility](Performed 04/15/2020) Performed for Type 2 diabetes mellitus without complication, without long-term current use of insulin (HCC) * LAB RESULTS ORDER(Performed 07/17/2019) * HEMOGLOBIN A1C - POINT OF CARE (AMB) [facility](Performed 07/10/2019) Performed for Type 2 diabetes mellitus without complication, without long-term current use of insulin (HCC) * EYE EXAM(Performed 01/25/2019) * HEMOGLOBIN A1C - POINT OF CARE (AMB) [facility](Performed 11/12/2018) Performed for Diabetes mellitus without complication (HCC) * PATHOLOGY TISSUE EXAM (STL)(Performed 09/19/2018) Performed for Screen for colon cancer * COLONOSCOPY BIOPSY (ANY METHOD)(Performed 09/19/2018) Performed for Screen for colon cancer * COLONOSCOPY SCREEN(Performed 09/19/2018) Performed for Screen for colon cancer * ENDOSCOPY, COLON, SCREENING(Performed 09/19/2018) * GLUCOSE - POINT OF CARE(Performed 09/19/2018) * HEMOGLOBIN A1C - POINT OF CARE (AMB) [facility](Performed 08/13/2018) Performed for Type 2 diabetes mellitus without complication, without long-term current use of insulin (HCC) * LAB RESULTS ORDER(Performed 04/18/2018) * HEMOGLOBIN A1C - POINT OF CARE (AMB) [facility](Performed 03/20/2018) Performed for Type 2 diabetes mellitus without complication, without long-term current use of insulin (HCC) * COMPREHENSIVE METABOLIC PANEL(Performed 02/02/2018) Performed for Essential (primary) hypertension * LIPID PROFILE(Performed 02/02/2018) Performed for Lipid screening * REF LAB COMMENT(Performed 11/01/2017) Performed for Need for hepatitis C screening test * HEPATITIS C AB W RFLX VERIFICATION(Performed 11/01/2017) Performed for Need for hepatitis C screening test * HEMOGLOBIN A1C(Performed 11/01/2017) Performed for Type 2 diabetes mellitus without complication, without long-term current use of insulin (HCC) * HEMOGLOBIN A1C - POINT OF CARE (AMB) [facility](Performed 03/17/2017) Results * EYE EXAM (09/03/2020) Anatomical Region Laterality Modality Other Narrative 09/03/2020 Ordered by an unspecified provider. Scanned Document SCANNING ONLY * (ABNORMAL) BASIC METABOLIC PANEL (CALCIUM TOTAL) (05/20/2020 2:19 PM GRANULATOR) Glucose 126(H) 65 - 99 mg/dL [facility] [...] BLOOD SPECIMEN / Unknown 05/20/2020 2:19 PM GRANULATOR 05/20/2020 Narrative Resulting Agency Comment Lab Testing performed at: [facility] [phone] Francisco Enriquez MD LAB - CHEMISTRY KLEVER BUITRAGO Performing Organization Address City/[facility]/ZIP Co de Phone Number [facility] INSURANCE BILL [address] [place] [address] * LIPID PROFILE (05/20/2020 2:19 PM GRANULATOR) Only the most recent of2 resultswithin the time period is included. Cholesterol 109 100 - 199 mg/dL [facility] INSURANCE BILL Triglycerides 109 0 - 149 mg/dL [facility] INSURANCE BILL HDL Cholesterol 47 >39 mg/dL [facility] INSURANCE BILL VLDL Calculated 20 5 - 40 mg/dL [facility] INSURANCE BILL LDL Calculated 42 0 - 99 mg/dL [facility] INSURANCE BILL Comment NOT NEEDED [facility] INSURANCE BILL Comment: FASTING Ancillary determined the test is not needed. Blood BLOOD SPECIMEN / Unknown 05/20/2020 2:19 PM GRANULATOR 05/20/2020 Narrative Resulting Agency Comment Lab Testing performed at: [facility] [phone] Francisco Enriquez MD LAB - CHEMISTRY KLEVER BUITRAGO [facility] INSURANCE BILL [address] [place] [address] * HEMOGLOBIN A1C - POINT OF CARE (AMB) [facility] (04/15/2020) Only the most recent of6 resultswithin the time period is included. Hemoglobin A1c POCT 6.2 BLOOD SPECIMEN / Unknown 04/15/2020 Francisco Enriquez MD LAB - POINT OF CARE ORDERABLES * LAB RESULTS ORDER (07/17/2019 6:37 AM GRANULATOR) Only the most recent of2 resultswithin the time period is included. Narrative 07/17/2019 6:37 AM GRANULATOR Ordered by an unspecified provider. Scanned Document LAB - THERAPEUTIC DR UG MONITORING ORDERABLES * EYE EXAM (01/25/2019 7:51 AM CDT) Anatomical Region Laterality Modality Other Narrative 01/25/2019 7:51 AM CDT Ordered by an unspecified provider. Scanned Document SCANNING ONLY * GROSS + MICRO EXAM (STL) (09/19/2018 2:16 PM CDT) Case Report Surgical Pathology Report Case: [id number] Authorizing Provider: Francia Prieto MD Collected: 09/19/2018 02:16 PM Ordering Location: [facility] Received: 09/20/2018 07:52 AM Pathologist: Charlie Lofton MD Specimens: A) - Polyp Colon, transverse colon polyp B) - Polyp Colon, sigmoid colon polyps 09/21/2018 2:37 PM CDT [facility] Final Diagnosis A. Polyp, transverse colon, polypectomy: -- Tubular adenoma. B. Polyps, sigmoid colon, polypectomy: -- Tubular adenomas. SD/scs 09/21/2018 2:37 PM CDT [facility] Clinical History Screen for colon cancer. 09/21/2018 2:37 PM CDT [facility] Gross Description Received in formalin labeled with the patient s identification and, transverse polyp, are two irregular fragments of lópez-pink tissue measuring 0.2 and 0.3 cm in greatest dimension. The specimen is entirely submitted in cassette A1. Received in formalin labeled with the patient s identification and, sigmoid polyp, are four irregular fragments of lópez-pink tissue ranging from 0.3 to 0.5 cm in greatest dimension. The specimen is entirely submitted in cassette B1. js/na 09/21/2018 2:37 PM CDT [facility] Microscopic Description A-B. There is no evidence of high grade dysplasia, or malignancy. SD/scs 09/21/2018 2:37 PM CDT [facility] Disclaimer All histochemical and/or immunohistochemical results are interpreted with controls that demonstrate appropriate staining reactions before reporting results. Note on use of immunocytochemistry reagents: This test was developed and its performance characteristic determined by [facility], Department of Laboratory Medicine. It has not been cleared or approved by the U.S. Food and Drug Administration (FDA). The FDA has determined that such clearance or approval is not necessary. The test is used for clinical purpose. It should not be regarded as investigational or for research. This laboratory is certified to perform high complexity testing. 09/21/2018 2:37 PM CDT [facility] Embedded Images 09/21/2018 2:37 PM CDT [facility] Pathology/Cytology POLYP OF COLON / Unknown 09/19/2018 2:16 PM CDT 09/20/2018 7:52 AM CDT Miscellaneous samples (specimen) POLYP OF COLON / Unknown 09/19/2018 2:23 PM CDT 09/20/2018 7:52 AM CDT Francia Vazquez MD LAB - PATHOLOGY/C YTOLOGY ORDERABLES [facility] [address] [place] [address] * ENDOSCOPY, COLON, SCREENING (09/19/2018 1:54 PM CDT) Report Endoscopy POC _ Patient Name: Mauricio Peña Procedure Date: 09/19/2018 1:54 PM Date of : 1950 Admit Type: Outpatient Age: 68 Gender: Male Attending MD: Francia Prieto MD _ Procedure: Colonoscopy Indications: Surveillance: Personal history of adenomatous polyps on last colonoscopy > 3 years ago (2014) Providers: Francia Prieto MD (Doctor), Madeline Bland RN Referring MD: Francisco Enriquez (Referring MD) [...] for surveillance. Procedure Code(s): --- Professional --- 92928, Colonoscopy, flexible; with biopsy, single or multiple --- Technical --- 39809, Colonoscopy, flexible; with biopsy, single or multiple [...] or abscess without bleeding CPT copyright 2017 [employer]. All rights reserved. The codes documented in this report are preliminary and upon foxing cutting machine operator review may be revised to meet current compliance requirements. __ Francia Prieto MD 09/19/2018 2:33:58 PM This report has been signed electronically. Number of Addenda: 0 Note Initiated On: 09/19/2018 1:54 PM [facility] 09/19/2018 1:54 PM CDT Francia Vazquez MD GI PROCEDURE ORDE RABLES [facility] * GLUCOSE - POINT OF CARE (09/19/2018 1:48 PM CDT) Glucose WB/POC 100 70 - 106 mg/dL 09/19/2018 1:50 PM CDT [facility] Blood BLOOD SPECIMEN / Unknown 09/19/2018 1:48 PM CDT 09/19/2018 1:50 PM CDT Francia Vazquez MD LAB - POINT OF CA RE ORDERABLES [facility] [address] [place] [phone] * (ABNORMAL) COMPREHENSIVE METABOLIC PANEL (02/02/2018 11:17 AM CDT) Glucose 185(H) 65 - 99 mg/dL [facility] INSURANCE BILL BUN 14 8 - 27 mg/dL [facility] INSURANCE BILL Creatinine 0.92 0.76 - 1.27 mg/dL [facility] INSURANCE BILL eGFR by MDRD 87 >59 mL/min/1.7 3 [facility] INSURANCE BILL eGFR by MDRD 101 >59 mL/min/1.7 3 [facility] INSURANCE BILL BUN/Creatinine Ratio 15 10 - 24 [facility] INSURANCE BILL Sodium 141 134 - 144 mmol/L [facility] INSURANCE BILL Potassium 4.3 3.5 - 5.2 mmol/L [facility] INSURANCE BILL Chloride 99 96 - 106 mmol/L [facility] INSURANCE BILL CO2 28 20 - 29 mmol/L [facility] INSURANCE BILL Calcium 9.5 8.6 - 10.2 mg/dL [facility] INSURANCE BILL Protein Total 6.5 6.0 - 8.5 g/dL [facility] INSURANCE BILL Albumin 4.2 3.6 - 4.8 g/dL [facility] INSURANCE BILL Globulin Total 2.3 1.5 - 4.5 g/dL [facility] INSURANCE BILL Albumin/Globulin Ratio 1.8 1.2 - 2.2 [facility] INSURANCE BILL Bilirubin Total 0.7 0.0 - 1.2 mg/dL [facility] INSURANCE BILL Alkaline Phosphatase 108 39 - 117 IU/L [facility] INSURANCE BILL AST 21 0 - 40 IU/L [facility] INSURANCE BILL ALT 27 0 - 44 IU/L [facility] INSURANCE BILL Comment:FASTING Blood BLOOD SPECIMEN / Unknown 02/02/2018 11:17 AM CDT 02/02/2018 Narrative Resulting Agency Comment [facility] [address] [phone] Francisco Enriquez MD LAB - CHEMISTRY KLEVER BUITRAGO [facility] INSURANCE BILL [address] [place] [address] * HEPATITIS C AB W RFLX VERIFICATION (11/01/2017 1:23 PM CDT) Pathologist [facility] Hepatitis C Antibody <0.1 0.0 - 0.9 s/co ratio [facility] INSURANCE BILL Blood BLOOD SPECIMEN / Unknown 11/01/2017 1:23 PM CDT 11/01/2017 Narrative Resulting Agency Comment [facility] [address] [facility] [address] [facility] [phone] Francisco Enriquez MD LAB - CHEMISTRY KLEVER BUITRAGO Performing Organization Address City/[facility]/ZIP Co de Phone Number [facility] INSURANCE BILL [address] [place] [address] * REF LAB COMMENT (11/01/2017 1:23 PM CDT) Comment [facility] INSURANCE BILL Comment: Non reactive HCV antibody screen is consistent with no HCV infection, unless recent infection is suspected or other evidence exists to indicate HCV infection. 11/01/2017 1:23 PM CDT 11/01/2017 Narrative Resulting Agency Comment [facility] [address] [facility] [address] [facility] [phone] Francisco Enriquez MD LAB - CHEMISTRY KLEVER BUITRAGO Performing Organization Address City/State/[facility] Co de Phone Number [facility] INSURANCE BILL [address] [place] [address] * (ABNORMAL) HEMOGLOBIN A1C (11/01/2017 1:23 PM CDT) Hemoglobin A1c 7.3(H) 4.8 - 5.6 % [facility] INSURANCE BILL Comment: . Pre-diabetes: 5.7 - 6.4 Diabetes: >6.4 Glycemic control for adults with diabetes: <7.0 Whole Blood BLOOD SPECIMEN WITH EDTA / Unknown 11/01/2017 1:23 PM CDT 11/01/2017 Narrative Resulting Agency [facility] [address] [facility] [phone] Francisco Enriquez MD LAB - CHEMISTRY KLEVER BUITRAGO [facility] Organization Address City/State/ZIP Co de Phone Number [facility] INSURANCE BILL [address] [place] [address] Care Teams Title Examiner Relationship Specialty Start Date End Date Gunjan Madison Care Coordination Specialist Care Management 08/21/18
--- OUTSIDE RECORDS SUMMARY | 2024-08-14 07:24 | XMS_ITS | Clinical Summary ---
Author Organization [facility] Address [address] [place] [address] Care Team Providers Care Airframe Design Engineer Name Role Phone Gunjan Madison Unavailable Unavailable Source Comments [facility],non-owned Affiliates and Associated Physician Practices is amultiple site organization consisting of ambulatory clinics and hospital sitesin [place], [place], [place] and [place]. This disclosure is being madepursuant to the Care Everywhere program and may not contain all information available regarding this patient. Last updated 18.[email or web address] [email or web address] Allergies Active Allergy Reactions Criticality Noted Date Comments Lisinopril Other Low 01/05/2009 Medications * Be aware that medications may not be up to date on this document. Alwaysverify current medications with the patient. Medication Sig Dispensed Refills Start Date End Date Status atorvastatin (LIPITOR) 10 MG tabletIndications:T ype 2 diabetes mellitus without complication, without long-term current use of insulin ([facility]) Take 1 tablet by mouth once daily 90 tablet 4 04/15/2020 Active Blood Glucose Monitoring Suppl (ONE TOUCH ULTRA MINI) w/Device KIT Use 1 Each as directed 1 kit 12/17/2020 Active blood glucose (ONETOUCH ULTRA) test stripIndications:Ty pe 2 diabetes mellitus without complication, without long-term current use of insulin ([facility]) Use 1 (one) strip once daily 100 [...] 12/19/2016 Assessment & Plan (04/15/2020 5:49 PM RPG PROGRAMMER ANALYST): Doing much better. Continue current medications and advised on lifestyle modifications. Assessment & Plan (07/10/2019 10:05 PM RPG PROGRAMMER ANALYST): A1c significantly higher than normal for him, most likely due to dietary indiscretion and lack of activity. He is committed to improving this and will work on it for the next few months. Return in about 3 months (around 10/09/2019) for f/u DM. Assessment & Plan (08/13/2018 10:49 AM RPG PROGRAMMER ANALYST): A1c essentially the same as previously. Blood glucose improving at home with improved diet, but still above goal. Will increase glimepiride dose. Return in about 6 weeks (around 09/24/2018) for f/u HTN, f/u DM. Essential (primary) hypertension 12/19/2016 Assessment & Plan (04/15/2020 5:49 PM RPG PROGRAMMER ANALYST): Good control on current medications. Continue to monitor Assessment & Plan (07/10/2019 10:05 PM RPG PROGRAMMER ANALYST): Also higher than normal. Returning to higher dose of chlorthalidone. Continue to monitor at home. Return in about 3 months (around 10/09/2019) for f/u DM. Assessment & Plan (08/13/2018 10:50 AM RPG PROGRAMMER ANALYST): High today. Would prescribe amlodipine, but Mr. [...] PNEUMOCOCCAL PPSV23 09/24/2018,10/04/2011 Pneumococcal Pcv13 Conj 03/17/2017 Family History Medical History Relation Name Comments Other Father Fell CAD (Coronary Artery Disease) Mother CVA Mother Status: d Cancer - Other Paternal Grandfather Bone Relation Name Status Comments Brother 1 Alive Brother 2 Alive Brother 3 Alive Brother 4 Alive Brother 5 Alive Father Maternal Grandfather Maternal Grandmother Mother Paternal Grandfather Paternal Grandmother Sister 1 Alive Sister 2 Alive Sister 3 Alive Sister 4 Alive Social History Tobacco Use Types Packs/Day [...] Comments Blood Pressure 134/86 04/15/2020 3:33 PM RPG PROGRAMMER ANALYST Pulse 84 04/15/2020 3:33 PM RPG PROGRAMMER ANALYST Temperature 36.2 C (97.1 F) 04/15/2020 3:33 PM RPG PROGRAMMER ANALYST Respiratory Rate 12 09/19/2018 3:05 PM CDT Oxygen Saturation 98% 04/15/2020 3:33 PM RPG PROGRAMMER ANALYST Inhaled Oxygen Concentration - - Weight 107.6 kg (237 lb 3.2 oz) 04/15/2020 3:33 PM RPG PROGRAMMER ANALYST Height 167.6 cm (5' 6 ) 04/15/2020 3:33 PM RPG PROGRAMMER ANALYST Body Mass Index 38.29 04/15/2020 3:33 PM RPG PROGRAMMER ANALYST Plan of Treatment Health Maintenance Due Date Last Done Comments COLOGUARD (AGES 45-75) - COLON CA SCREENING 1950 CT COLONOGRAPHY - COLON CA SCREENING 1950 FIT - COLON CA SCREENING 1950 FLEX SIG - COLON CA SCREENING 1950 DTAP/TDAP/TD VACCINES (1 - Tdap) 02/10/1971 ZOSTER VACCINE (1 of 2) 02/10/2002 DIABETES-FOOT EXAM WITH MONOFILAMENT 07/10/2020 07/10/2019, 03/20/2018, 03/20/2018, Additional history exists DIABETES-HGB A1C 10/13/2020 04/15/2020, , 11/12/2018, Additional history exists DIABETES-SERUM CREATININE 05/20/2021 05/20/2020, DIABETES RETINOPATHY SCREENING 09/03/2022 09/03/2020, 01/21/2020 (Done Outside Per Report), 01/25/2019, Additional history exists COLON MONITORING 09/20/2023 09/19/2018, 03/2019, 09/19/2018, Additional history exists Colorectal Cancer Screening 09/20/2023 COVID-19 VACCINE ( season) 2024 INFLUENZA VACCINE (#1) 2024 02/27/2021 DEPRESSION SCREENING 06/12/2024 DIABETES - URINE PROTEIN SCREENING 06/12/2024 MEDICARE AWV CALENDAR YEAR 2024 Respiratory Syncytial Virus (RSV) Vaccine Pt: or over 60 yrs (1 - 1-dose 75+ series) 02/10/2027 COLONOSCOPY - COLON CA SCREENING 09/19/2028 09/19/2018, 09/19/2018, 09/19/2018 HEPATITIS C SCREENING Completed 11/01/2017 PNEUMOCOCCAL VACCINE 50+ Completed 019, 03/17/2017, 10/04/2011 HEPATITIS B VACCINE Aged Out No longe r eligible based on patient's age to complete this topic HIB VACCINE Aged Out No longer eligi ble based on patient's age to complete this topic HPV VACCINE Aged Out No longer eligi ble based on patient's age to complete this topic MENINGOCOCCAL (Group B) VACCINE Aged Out No longer eligible based on patient's age to complete this topic MENINGOCOCCAL VACCINE Aged Out No francine nate eligible based on patient's age to complete this topic Goals Goal Patient Goal Type Associated Problems Recent Progress Patient-Stated? Author Blood Pressure < 140/90 Blood Pressure 134/86(2019 3:33 PM RPG PROGRAMMER ANALYST) Yes Gunjan Madison Note: Patient enrolled in EpxHTN program to track and monitor at home BP readings. Procedures Procedure Name Priority Date/Time Associated Diagnosis Comments EYE EXAM 09/03/2020 BASIC METABOLIC PANEL (CALCIUM TOTAL) Routine 05/20/2020 2:19 PM RPG PROGRAMMER ANALYST Essential (primary) hypertension HEMOGLOBIN A1C - POINT [...] METABOLIC PANEL (CALCIUM TOTAL) (05/20/2020 2:19 PM RPG PROGRAMMER ANALYST) Glucose 126(H) 65 - 99 mg/dL [facility] [...] BLOOD SPECIMEN / Unknown 05/20/2020 2:19 PM RPG PROGRAMMER ANALYST 05/20/2020 Narrative Resulting Agency Comment [facility] [address] [facility] [phone] Francisco Enriquez MD LAB - CHEMISTRY KLEVER BUITRAGO [facility] INSURANCE BILL [address] [place] [address] * HEMOGLOBIN A1C - POINT OF CARE [...] on last colonoscopy > 3 years ago (2015) Providers: Francia Prieto MD (Doctor), Madeline Bland [...] for surveillance. Procedure Code(s): --- Professional --- 80905, Colonoscopy, flexible; with biopsy, single or multiple --- Technical --- 58742, Colonoscopy, flexible; with biopsy, single or multiple [...] or abscess without bleeding CPT copyright 2017 [employer]. All rights reserved. The codes documented in this report are preliminary and upon log sorter review may be revised to meet current compliance requirements. __ Francia Prieto MD 09/19/2018 2:33:58 PM This report has been signed electronically. Number of Addenda: 0 Note Initiated On: 09/19/2018 1:54 PM [facility] 09/19/2018 1:54 PM CDT Francia Vazquez MD GI PROCEDURE KLEVER BUITRAGO [facility] * HEPATITIS C AB W RFLX VERIFICATION (11/01/2017 1:23 PM CDT) Hepatitis C Antibody <0.1 0.0 - 0.9 s/co ratio [facility] INSURANCE BILL Blood BLOOD SPECIMEN / Unknown 11/01/2017 1:23 PM CDT 11/01/2017 Narrative Resulting Agency Comment [facility] [address] [facility] [phone] Francisco Enriquez MD LAB - CHEMISTRY KLEVER Muhammad Organization Address City/State/ZIP Co de Phone Number [facility] INSURANCE BILL [address] [place] [address] from Last 3 Months or Most Recently Relevant to Health Maintenance Care Teams Airframe Design Engineer Relationship Specialty Start Date End Date Gunjan Madison Care Coordination Specialist Care Management 08/21/18
--- OUTSIDE RECORDS SUMMARY | 2024-08-14 07:24 | XMS_ITS | Encounter Summary ---
Author Organization [employer] Address [address] [place] [address] Care Team Providers Care Computer Systems Hardware Analyst Name Role Phone Francisco Enriquez MD Primary Care Provider Encounter Details Date Type Department Care Team (Late st Contact Info) Description 08/22/2007 Outpatient [facility] [address] [facility] [place], [place] [id number] Julia Gandhi MD [address] [place] [id number] Social History Tobacco Use Types Packs/Day Years Used Date Smoking Tobacco: Never Assessed Sex and Gender Information Value Date Recorded Sex Assigned at Not on file Legal Sex Male 3:07 AM DISTRIBUTION CENTER ASSOCIATE Gender Identity Not on file Sexual Orientation Not on file documented as of this encounter Plan of Treatment Not on file documented as of this encounter Visit Diagnoses Not on filedocumented in this encounter Care Teams Computer Systems Hardware Analyst Relationship Specialty Start Date End Date Francisco Enriquez MD PCP - General Student in an Organized Health Care Education/Training Program 06/20/17 documented as of this encounter
--- OUTSIDE RECORDS SUMMARY | 2024-08-14 07:24 | XMS_ITS | Clinical Summary ---
Author Organization [facility] Address [address] [place] [address] Care Team Providers Care Foreign Law Consultant Name Role Phone Sony Kumar MD Primary Care Provider [phone] Social History Tobacco Use Types Packs/Day Years Used Date Smoking Tobacco: Never Assessed Sex and Gender Information Value Date Recorded Sex Assigned at Not on file Legal Sex Male 6:24 AM CDT Gender Identity Not on file Sexual Orientation Not on file Plan of Treatment Health Maintenance Due Date Last Done Comments Colorectal Cancer Screening Colonoscopy (10 Years) 1950 Hepatitis C 02/10/1970 DTaP, Tdap and Td Vaccines (1 - Tdap) 02/10/1971 Zoster Vaccines (1 of 2) 02/10/2002 Annual Medicare Wellness Visit 02/10/2017 COVID-19 Vaccine ( season) 2024 09/28/2021, 02/27/2021, 08/28/2020, Additional history exists Influenza Adult (#1) 2024 02/27/2021 RSV Immunization or 60+ Years (1 - 1-dose 75+ series) 02/10/2027 Pneumococcal Vaccine: 65+ Years Completed 09/24/2018, 03/17/2017, 10/04/2011 Meningococcal B Vaccine Aged Out No l onger eligible based on patient's age to complete this topic Meningococcal Vaccine Aged Out No francine nate eligible based on patient's age to complete this topic RSV Immunizations Under 20 Months Aged Out No longer eligible based on patient's age to complete this topic Insurance [facility] Care Teams Foreign Law Consultant Relationship Specialty Start Date End Date Sony Kumar MD [address] [place] [address] PCP - General INTERNAL MEDICINE 04/22/22
--- OUTSIDE RECORDS SUMMARY | 2024-08-14 07:24 | XMS_ITS | Encounter Summary ---
Author Organization [facility] Address 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 LAST VISIT: 06/20/07 PCP: cha. ALTERNATIVE PHONE NUMBER: [phone] WHO CALLED: Patient called. CURRENT ALLERGY LIST: NO KNOWN DRUG ALLERGY PHARMACY NUMBER:[phone] PROBLEMS: CONGESTION: Patient complains of sinus congestion, complains of chest congestion, complains of headcongestion. COUGH:Patient complains of cough. green phlegm RUNNY NOSE: Patient complains of runny nose. SECTION 1: REQUESTED ACTION beka 07/09/07 at 08:34 am: MEDICATION REQUEST: pt would like a rx..........................SAS DOCTOR`S RESPONSE: ángel 07/09/07 at 10:36 am MEDICATIONS: Call in to Pharmacy ZITHROMAX Z-MARIA D ORAL TABLET 250 MG, as directed, 1 Dispensed, status: NEW PRESCRIPTION, 07/09/2007. ENTEX PSE ORAL TABLET 12 HR 120-600 MG, 1 tab twice daily, 20 Dispensed, status: NEW PRESCRIPTION, 07/09/2007. FINAL ACTION: beka 07/09/07 at 11:12 am Spoke with patient 07/09/07 at 11:12 am. Called pharmacy at 07/09/07 at 11:12 am. MARCOS Electronically Signed by: Mayra Dean on Monday, July 09, 2007 documented in this encounter Plan of Treatment Not on file documented as of this encounter Visit Diagnoses Not on filedocumented in this encounter Care Teams Orthodontic Technician Relationship Specialty Start Date End Date Francisco Enriquez MD PCP - General Student in an Organized Health Care Education/Training Program 06/20/17 documented as of this encounter
--- OUTSIDE RECORDS SUMMARY | 2024-08-14 07:24 | XMS_ITS | Encounter Summary ---
Author Organization [facility]formerly known [facility] Address [address] [place] [address] Care Team Providers Care Dining Car Server Name Role Phone Francisco Enriquez MD Primary Care Provider [phone] Encounter Details Date Type Department Care Team (Late st Contact Info) Description 07/20/2007 Outpatient [facility] [address] [facility] 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
--- OUTSIDE RECORDS SUMMARY | 2024-08-14 07:24 | XMS_ITS | Encounter Summary ---
Author Organization [facility] Address [address] [place] [address] Care Team Providers Care Pier Worker Name Role Phone Francisco Enriquez MD Primary Care Provider [phone] Encounter Details Date Type Department Care Team (Late st Contact Info) Description 01/05/2009 Outpatient [facility], [address] Kj Kelly MD [address] [facility] [address] [place] [address] Routine General Medical Examination at a Health Care Facility Social History Tobacco Use Types Packs/Day Years Used Date Smoking Tobacco: Never Alcohol Use Standard Drinks/Week Comments Yes 0 (1 standard drink = 0.6 oz pur e alcohol) Sex and Gender Information Value Date Recorded Sex Assigned at Not on file 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
== END 2024-08-14 07:21 | disposition home or self-care (01) ==
PROVIDERS: PCP Internal Medicine; Visit Provider Internal Medicine
DX: I65.23 Occlusion and stenosis of bilateral carotid arteries (principal); I10 Essential (primary) hypertension; I25.10 Atherosclerotic heart disease of native coronary artery without angina pectoris
CPT/HCPCS: 93880

== ENCOUNTER 2024-11-14 11:25 | Outpatient (CLI) | payer OTHER, SELFPAY ==
[2024-11-14 11:55] LABS: Basophils Absolute Auto 0.1 K/mm3 (0.0-0.1); Basophils Percent Auto 1.3 % (0.2-1.2); Eosinophils Absolute Auto 0.1 K/mm3 (0-0.3); Eosinophils Percent Auto 1.1 % (0-4.4); Hematocrit 51.3 % (42.0-52.0); Hemoglobin 17.2 g/dL (14.0-18.0); Immature Granulocyte Absolute 0.07 K/mm3 (0.00-0.031); Immature Granulocyte Percent A 0.9 % (0-0.5); Lymphocytes Absolute Auto 2.14 K/mm3 (0.9-3.2); Lymphocytes Percent Auto 26.1 % (18.3-44.2); Mean Corpuscular HGB Conc 33.5 g/dl (32-36); Mean Corpuscular Hemoglobin 29.7 pg (26-34); Mean Corpuscular Volume 88.4 fl (80-100); Mean Platelet Volume 10.7 fl (7.4-10.4); Monocytes Absolute Auto 0.6 K/mm3 (0.1-0.6); Monocytes Percent Auto 7.3 % (2.6-8.5); Neutrophils Absolute Auto 5.2 K/mm3 (1.3-6.7); Neutrophils Percent Auto 63.3 % (45.5-73.1); Platelet Count Result 206 k/mm3 (150-375); White Blood Count 8.2 K/mm3 (4.5-10.0)
[2024-11-14 12:15] LABS: Alanine Aminotransferase 29 U/L (6-50); Alkaline Phosphatase 134 U/L (38-126); Anion Gap 7 mmol/L (4-12); Aspartate Amino Transferase 30 U/L (17-59); Bilirubin,Total 1.1 mg/dL (0.2-1.3); Blood Urea Nitrogen 16 mg/dL (9-20); Calcium 9.5 mg/dL (8.4-10.2); Carbon Dioxide 27 mmol/L (22-30); Chloride 103 mmol/L (98-107); Cholesterol 139 mg/dL (0-200); Estimated Glomerular Filt Rate > 60; Glucose 165 mg/dL (65-110); HDL Direct 58 mg/dL; Potassium 3.6 mmol/L (3.4-5.0); Sodium 137 mmol/L (137-145); Total Protein 6.8 g/dL (6.3-8.2); Triglycerides 91 mg/dL (<150)
[2024-11-14 12:29] LABS: Free T4 Free Thyroxine 1.48 ng/dL (0.78-2.19); Vitamin D 25 Hydroxy 70.6 ng/mL
[2024-11-14 12:32] LABS: LDL Cholesterol Direct 59 mg/dL
--- OUTSIDE RECORDS SUMMARY | 2024-11-14 12:34 | XMS_ITS | Encounter Summary ---
Author Organization [facility] Address [address] [place] [address] Care Team Providers Care Candy Supervisor Name Role Phone Francisco Enriquez MD Primary Care Provider [phone] Encounter Details Date Type Department Care Team (Late st Contact Info) Description 01/05/2009 Outpatient Historical [facility], [address] Kj Kelly MD [address] [facility] [address] [place] [address] Routine General Medical Examination at a Health Care Facility Social History Tobacco Use Types Packs/Day Years Used Date Smoking Tobacco: Never Alcohol Use Standard Drinks/Week Comments Yes 0 (1 standard drink = 0.6 oz pur e alcohol) Sex and Gender Information Value Date Recorded Sex Assigned at Not on file 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
--- OUTSIDE RECORDS SUMMARY | 2024-11-14 12:34 | XMS_ITS | Encounter Summary ---
Author Organization [email or web address] Address [address] [place] [address] Care Team Providers Care Vice President Of Development Name Role Phone Francisco Enriquez MD Primary Care Provider [phone] Encounter Details Date Type Department Care Team (Late st Contact Info) Description 07/22/[address] [facility] [address] [facility]. 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
--- OUTSIDE RECORDS SUMMARY | 2024-11-14 12:34 | XMS_ITS | Clinical Summary ---
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 Gender Identity Not on file Sexual [...] 1:40 PM CDT Height 167.6 cm (5' 6) 12/19/2016 1:40 PM CDT Body Mass Index [...] 03/17/2017, 10/04/2011 Medical Devices Implanted Type Area Chief School Finance Officer Device Identifier Shelf Expiration Date Model / Serial / Lot Mesh Plug Perfix [id number] - [id number] Implanted:Qty : 1 on 11/09/2016 by Isaac Morales MD at [facility] Mesh Left: Inguinal CR [employer] [id number] 05/09/2021 [id number] / / [id number] Procedures Procedure Name Priority Date/Time Associated Diagnosis Comments HEMOGLOBIN A1C Routine 09/09/2016 11:41 AM CDT Type 2 diabetes mellitus without complication, without long-term current use of insulin ([facility]/HCC) MICROALBUMIN/CREATI NINE RATIO, RANDOM UR Routine 01/18/2016 10:36 AM CDT Type 2 diabetes mellitus without complication ([facility]/HCC) LIPID PANEL Routine 01/18/2016 10:36 AM CDT Type 2 diabetes mellitus without complication ([facility]) from Last 3 Months or Most Recently Relevant to Health Maintenance Results * (ABNORMAL) HEMOGLOBIN A1C (09/09/2016 11:41 AM CDT) HEMOGLOBIN A1C 7.9(H) 4.0 - 6.0 % 09/09/2016 3:45 PM CDT [facility] Comment:Note: Effective as o f 07/03/2015 a new methodology, Turbidimetric inhibition immunoassay (TINIA),has been implemented. EST. AVG GLUCOSE, A1C 180 mg/dL 09/09/2016 3:45 PM CDT [facility] Blood Venipuncture / Unknown 09/09/2016 11:41 AM CDT 09/09/2016 2:25 PM CDT us Avni Bateman MD CHEMISTRY ORDERABLES Final Re sult [facility] CLIA# [id number] [address] [place] [address] * MICROALBUMIN/CREATININE RATIO, RANDOM UR (01/18/2016 10:36 AM CDT) Creatinine, Urine 233 20 - 370 mg/dL [email or web address] Comment: Test Performed at: [email or web address] [address] NEGRO RODRIGUEZ DO,MPH MICROALBUMIN, URINE 1.1 mg/dL [facility] Comment: Reference Range Not established Test Performed at: [email or web address] [address] NEGRO RODRIGUEZ DO,MPH MICROALBUMIN/CREAT RATIO, UR 5 <30 mcg/mg creat [email or web address] Comment: The ADA defines abnormalities in albumin [...] URINE ORDERABLES Final Result Performing Organization Address City/State/[facility] Co de Phone Number [email or web address] [address] [place] [address] * LIPID PANEL (01/18/2016 10:36 AM CDT) CHOLESTEROL 157 125 - 200 mg/dL [email or web address] Comment: Test Performed at: [facility] [address] NEGRO RODRIGUEZ DO,MPH HDL 41 > OR = 40 mg/dL [email or web address] TRIGLYCERIDE 127 <150 mg/dL [email or web address] LDL CALCULATED 91 <130 mg/dL (calc) [facility] Comment: Desirable range <100 mg/dL for patients with CHD or diabetes and <70 mg/dL for diabetic patients with known heart disease. CHOL/HDL RATIO 3.8 < OR = 5.0 (calc) [facility] TOTAL NON-HDL CHOL(LDL+VLDL) 116 mg/dL (calc) [facility] Comment: Target for non-HDL cholesterol is 30 mg/dL higher than LDL cholesterol target. Blood specimen (specimen) 01/18/2016 10:36 AM CDT us Avni Bateman MD CHEMISTRY ORDERABLES Final Re sult [facility] [address] [place] [address] from Last 3 Months or Most Recently Relevant to Health Maintenance Insurance Advance Directives For more information, please contact: [phone] Documents on File Type Date Recorded Patient Tonguer Expl anation Advance Directive POA 07/08/2014 10:55 [...] 1:29 PM 01/21/2011 11:32 AM Care Teams Nozzle Tender Relationship Specialty Start Date End Date Francisco Enriquez MD PCP - General Student in an Organized Health Care Education/Training Program 06/20/17
--- OUTSIDE RECORDS SUMMARY | 2024-11-14 12:34 | XMS_ITS | Clinical Summary ---
Author Organization [facility] Address [address] [place] [address] Care Team Providers Care Fiscal Services Manager Name Role Phone Gunjan Madison Unavailable Unavailable Source Comments [facility],non-owned Affiliates and Associated Physician Practices is amultiple site organization consisting of ambulatory clinics and hospital sitesin [place], [place], [place] and [place]. This disclosure is being madepursuant to the Care Everywhere program and may not contain all information available regarding this patient. Last updated 18.[facility] Backtrace I/O Allergies Active Allergy Reactions Criticality Noted Date Comments Lisinopril Other Low 01/05/2009 Medications * Be aware that medications may not be up to date on this document. Alwaysverify current medications with the patient. atorvastatin (LIPITOR) 10 MG tabletIndication s:Type 2 diabetes mellitus without complication, without long-term current use of insulin (HCC) Take 1 tablet by mouth once daily 90 tablet 4 0 Active Blood Glucose Monitoring Suppl (ONE TOUCH ULTRA MINI) w/Device KIT Use 1 Each as directed 1 kit 1 Active blood glucose (ONETOUCH ULTRA) test stripIndications :Type 2 diabetes mellitus without complication, without long-term current use of insulin (HCC) Use 1 (one) strip once daily 100 strip 1 Active metFORMIN ER 24hr (GLUCOPHAGE XR) 500 MG tabletIndication s:Type 2 diabetes mellitus without complication, without long-term current use of insulin (HCC) Take 2 (two) tablets by mouth 2 times daily 360 tablet 1 Active glimepiride (AMARYL) 4 MG tabletIndication s:Type 2 diabetes mellitus without complication, without long-term current use of insulin (HCC) Take 1 (one) tablet by mouth 2 times daily after meals 180 tablet 1 Active chlorthalidone (HYGROTON) 25 MG tabletIndication s:Essential (primary) hypertension Take 1 (one) tablet by mouth once daily 90 tablet 1 Active losartan (COZAAR) 100 MG tabletIndication s:Essential (primary) hypertension Take 1 (one) tablet by mouth once daily Patient needs appointment 90 tablet 1 Active Active Problems Patient Care Coordination No te Formatting of this note migh t be different from the original. Patient enrolled in EpxHTN program to record and monitor BP readings. Problem Noted Date Diagnosed Date Type 2 diabetes mellitus without complications 0 12/19/2016 Overview (09/11/2024): IMO 09/11/2024 Assessment & Plan (04/15/2020 5:49 PM PERSONNEL COORDINATOR): Doing much better. Continue current medications and advised on lifestyle modifications. Assessment & Plan (07/10/2019 10:05 PM PERSONNEL COORDINATOR): A1c significantly higher than normal for him, most likely due to dietary indiscretion and lack of activity. He is committed to improving this and will work on it for the next few months. Return in about 3 months (around 10/09/2019) for f/u DM. Assessment & Plan (08/13/2018 10:49 AM PERSONNEL COORDINATOR): A1c essentially the same as previously. Blood glucose improving at home with improved diet, but still above goal. Will increase glimepiride dose. Return in about 6 weeks (around 09/24/2018) for f/u HTN, f/u DM. Essential (primary) hypertension 12/19/2016 Assessment & Plan (04/15/2020 5:49 PM PERSONNEL COORDINATOR): Good control on current medications. Continue to monitor Assessment & Plan (07/10/2019 10:05 PM PERSONNEL COORDINATOR): Also higher than normal. Returning to higher dose of chlorthalidone. Continue to monitor at home. Return in about 3 months (around 10/09/2019) for f/u DM. Assessment & Plan (08/13/2018 10:50 AM PERSONNEL COORDINATOR): High today. Would prescribe amlodipine, but Mr. Van has significant history of lower extremity edema, so may not be best option. Will refer to [facility] for now, and consider adding beta-marycruz or spironolactone at next visit, if needed. Obesity (BMI 30-39.9) 07/20/2015 Adenoma of large intestine 08/22/2014 Sleep apnea 06/20/2007 Overview (08/13/2018): On CPAP. Screen for colon cancer History of colon polyps Immunizations Immunization Administration Dates Next Due INFLUENZA VACCINE 02/27/2021 [...] at Not on file Legal Sex Male 5:23 PM PERSONNEL COORDINATOR Gender Identity Not on file Sexual Orientation Not on file Last Filed Vital Signs Vital Sign Reading Time Taken Comments Blood Pressure 134/86 04/15/2020 3:33 PM PERSONNEL COORDINATOR Pulse 84 04/15/2020 3:33 PM PERSONNEL COORDINATOR Temperature 36.2 C (97.1 F) 04/15/2020 3:33 PM PERSONNEL COORDINATOR Respiratory Rate 12 09/19/2018 3:05 PM CDT Oxygen Saturation 98% 04/15/2020 3:33 PM PERSONNEL COORDINATOR Inhaled Oxygen Concentration - - Weight 107.6 kg (237 lb 3.2 oz) 04/15/2020 3:33 PM PERSONNEL COORDINATOR Height 167.6 cm (5' 6) 04/15/2020 3:33 PM PERSONNEL COORDINATOR Body Mass Index 38.29 04/15/2020 3:33 PM PERSONNEL COORDINATOR Plan of Treatment Upcoming Encounters Date Type Department Care Team (Late st Contact Info) Description 11/28/2024 1:15 PM CDT Office Visit [facility] - Ophthalmology [address], [place] [address] Itz Chau MD [address] [place] [address] [place] [id number] Health Maintenance Due Date Last Done Comments [...] Screening 09/20/2023 COVID-19 VACCINE ( season) 2024 DEPRESSION SCREENING 06/12/2024 DIABETES - URINE PROTEIN SCREENING 06/12/2024 MEDICARE AWV CALENDAR YEAR 2024 INFLUENZA VACCINE (Season Ended) 2025 02/27/2021 Respiratory Syncytial Virus (RSV) Vaccine Pt: or [...] complete this topic MENINGOCOCCAL (Group B) VACCINE SHARED DECISION-MAKING Aged Out No longer eligible based on patient's age to complete this topic MENINGOCOCCAL GROUPS A/C/Y/W VACCINE Aged Out No longer eligible based on patient's age to complete this topic Goals Goal Patient Goal Type Associated Problems Recent Progress Patient-Stated? Author Blood Pressure < 140/90 Blood Pressure 134/86(2019 3:33 PM PERSONNEL COORDINATOR) Yes Gunjan Madison Note: Patient enrolled in EpxHTN program to track and monitor at home BP readings. Procedures Procedure Name Priority Date/Time Associated Diagnosis Comments EYE EXAM 09/03/2020 BASIC METABOLIC PANEL (CALCIUM TOTAL) Routine 05/20/2020 2:19 PM PERSONNEL COORDINATOR Essential (primary) hypertension HEMOGLOBIN A1C - POINT OF CARE (AMB) [facility] Routine 04/15/2020 Type 2 diabetes mellitus without complication, without long-term current use of insulin ENDOSCOPY, COLON, SCREENING Routine 09/19/2018 1:54 PM CDT HEPATITIS C AB W RFLX VERIFICATION Routine 11/01/2017 1:23 PM CDT Need for hepatitis C screening test from Last 3 Months or Most Recently Relevant to Health Maintenance Results * EYE EXAM (09/03/2020) Anatomical Region Laterality Modality Other Narrative 09/03/2020 Ordered by an unspecified provider. us Scanned Document SCANNING ONLY Final Result * (ABNORMAL) BASIC METABOLIC PANEL (CALCIUM TOTAL) (05/20/2020 2:19 PM PERSONNEL COORDINATOR) Pathologist [facility] Glucose 126(H) 65 - 99 mg/dL [facility] [...] BLOOD SPECIMEN / Unknown 05/20/2020 2:19 PM PERSONNEL COORDINATOR 05/20/2020 Narrative Resulting Agency Comment Lab Testing performed at: [facility] [address] [id number] Francisco Enriquez MD LAB - CHEMISTRY ORDERABLES Fi nal Result [facility] INSURANCE BILL [address] [place] [address] * HEMOGLOBIN A1C - POINT OF CARE (AMB) [facility] (04/15/2020) [facility] Hemoglobin A1c POCT 6.2 BLOOD SPECIMEN / Unknown 04/15/2020 Francisco Enriquez MD LAB - POINT OF CARE ORDERABLE S Final Result * ENDOSCOPY, COLON, SCREENING (09/19/2018 1:54 PM CDT) [facility] Report Endoscopy POC _ Patient Name: Efrain Van Procedure Date: 09/19/2018 1:54 PM Date of [...] for surveillance. Procedure Code(s): --- Professional --- 23491, Colonoscopy, flexible; with biopsy, single or multiple --- Technical --- 13626, Colonoscopy, flexible; with biopsy, single or multiple [...] or abscess without bleeding CPT copyright 2017 [employer]. All rights reserved. The codes documented in this report are preliminary and upon director of acquisition marketing review may be revised to meet current compliance requirements. __ Francia Prieto MD 09/19/2018 2:33:58 PM This report has been signed electronically. Number of Addenda: 0 Note Initiated On: 09/19/2018 1:54 PM [facility] ENDOSCOPY 09/19/2018 1:54 PM CDT us Francia Vazquez MD GI PROCEDURE ORDERABLES E dited Result - Final [facility] ENDOSCOPY * HEPATITIS C AB W RFLX VERIFICATION (11/01/2017 1:23 PM CDT) Hepatitis C Antibody <0.1 0.0 - 0.9 s/co ratio [facility] INSURANCE BILL Blood BLOOD SPECIMEN / Unknown 11/01/2017 1:23 PM CDT 11/01/2017 Narrative Resulting Agency Comment [facility] [place] [address] [id number] Francisco Enriquez MD LAB - CHEMISTRY ORDERABLES Fi nal Result [facility] INSURANCE BILL [address] [place] [address] from Last 3 Months or Most Recently Relevant to Health Maintenance Insurance MANAGED MEDICARE ADV [facility] MANAGED MEDICARE ADV Care Teams Fiscal Services Manager Relationship Specialty Start Date End Date Gunjan Madison Care Coordination Specialist Care Management 08/21/18
--- OUTSIDE RECORDS SUMMARY | 2024-11-14 12:34 | XMS_ITS | Encounter Summary ---
Author Organization [employer] Address [address] [place] [address] Care Team Providers Care Composing Machine Operator/Tender Name Role Phone Francisco Enriquez MD Primary Care Provider Encounter Details Date Type Department Care Team (Late st Contact Info) Description 08/22/2007 Outpatient [facility] [address] 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
--- OUTSIDE RECORDS SUMMARY | 2024-11-14 12:34 | XMS_ITS | Encounter Summary ---
Author Organization [employer] Address 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
--- OUTSIDE RECORDS SUMMARY | 2024-11-14 12:34 | XMS_ITS | Encounter Summary ---
Author Organization [employer] Address [address] [place] [address] Care Team Providers Care Associate Dean Of Women Name Role Phone Francisco Enriquez MD Primary Care Provider Encounter Details Date Type Department Care Team (Late st Contact Info) Description 07/20/2007 Outpatient [facility] [address] [facility] 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
--- OUTSIDE RECORDS SUMMARY | 2024-11-14 12:34 | XMS_ITS | Encounter Summary ---
Author Organization [facility] Address [address] [place] [address] Care Team Providers Care Metal Pickling Equipment Operator Name Role Phone Francisco Enriquez MD Primary Care Provider [phone] Encounter Details Date Type Department Care Team (Late st Contact Info) Description 06/06/2007 Outpatient Historical [facility] Primary Care - [address] [place] [address] Kj Kelly MD [address] [place] [address] Social History Tobacco Use Types Packs/Day Years Used Date Smoking Tobacco: Never Assessed Sex and Gender Information Value Date Recorded Sex Assigned at Not on file 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
--- OUTSIDE RECORDS SUMMARY | 2024-11-14 12:34 | XMS_ITS | Encounter Summary ---
Author Organization [facility] Address [address] [place] [address] Care Team Providers Care Operations Logistics Analyst Name Role Phone Francisco Enriquez MD Primary Care Provider [phone] Encounter Details Date Type Department Care Team (Late st Contact Info) Description 06/20/2007 Outpatient Historical [facility] Primary Care - [address] [place] [address] Kj Kelly MD [address] [place] [address] Special Screening for Malignant Neoplasm of Prostate Social History Tobacco Use Types Packs/Day Years Used Date Smoking Tobacco: Never Assessed Sex and Gender Information Value Date Recorded Sex Assigned at Not on file Legal Sex Male 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 SERVICE DISPATCHER Gender Identity Not on file Sexual Orientation Not on file documented as of this encounter Last Filed Vital Signs Vital Sign Reading Time Taken Comments Blood Pressure 124/86 06/20/2007 11:15 AM CHIEF SERVICE DISPATCHER Pulse - - Temperature 36.8 C (98.3 F) 06/20/2007 11:15 AM CHIEF SERVICE DISPATCHER Respiratory Rate - - Oxygen Saturation - - Inhaled Oxygen Concentration - - Weight 119.3 kg (263 lb) 06/20/2007 11:15 AM CHIEF SERVICE DISPATCHER Height - - Body Mass Index - - documented in this encounter Plan of Treatment Not on file documented as of this encounter Procedures Procedure Name Priority Date/Time Associated Diagnosis Comments TSH WITH REFLEX FT4 AND FT3 Routine 06/20/2007 3:57 PM CHIEF SERVICE DISPATCHER PSA Routine 06/20/2007 3:57 PM CHIEF SERVICE DISPATCHER LIPID PANEL Routine 06/20/2007 3:57 PM CHIEF SERVICE DISPATCHER COMPREHENSIVE METABOLIC PANEL Routine 06/20/2007 3:57 PM CHIEF SERVICE DISPATCHER documented in this encounter Results * TSH WITH REFLEX FT4 AND FT3 (06/20/2007 3:57 PM CHIEF SERVICE DISPATCHER) TSH 2.62 0.27 - 4.20 uU/mL INTERFACE SYSTEM 06/20/2007 3:57 PM CHIEF SERVICE DISPATCHER us Kj Kelly MD CHEMISTRY ORDERABLES Edited INTERFACE SYSTEM Refer to clinic/hospital department * (ABNORMAL) COMPREHENSIVE METABOLIC PANEL (06/20/2007 3:57 PM CHIEF SERVICE DISPATCHER) GLUCOSE 111(H) 65 - 99 mg/dL INTERFACE [...] and non- Americans is available on the [facility] Intranet at: [email or web address] Select: Lab Policies and Procedures Select: Reference Ranges - GFR 06/20/2007 3:57 PM CHIEF SERVICE DISPATCHER Result [facility] Kj Kelly MD CHEMISTRY ORDERABLES Edited Performing Organization Address [facility] Co de Phone Number INTERFACE SYSTEM Refer to clinic/hospital department * (ABNORMAL) LIPID PANEL (06/20/2007 3:57 PM CHIEF SERVICE DISPATCHER) CHOLESTEROL 182 100 - 199 mg/dL INTERFACE SYSTEM TRIGLYCERIDE 158(H) 10 - 149 mg/dL INTERFACE SYSTEM HDL 44 40 - 59 mg/dL INTERFACE SYSTEM CHOL/HDL RATIO 4.1 2.0 - 5.0 INTER FACE SYSTEM LDL CALCULATED 106(H) <=99 mg/dL INTERFACE SYSTEM LIPID PANEL COMMENT See Below INTERFACE SYSTEM Comment: The adult ATP and pediatric NCEP classifications for lipids are available on the [facility] Intranet at: [email or web address] psychiatric [email or web address] RadiusSaehwa [email or web address] Select: Lab Policies and Procedures,Current Select: Lipid Panel Interpretation 06/20/2007 3:57 PM CHIEF SERVICE DISPATCHER Result [facility] Kj Kelly MD CHEMISTRY ORDERABLES Edited Performing Organization Address [facility] Phone Number INTERFACE SYSTEM Refer to clinic/hospital department * PSA (06/20/2007 3:57 PM CHIEF SERVICE DISPATCHER) PSA 0.3 0.0 - 4.0 ng/mL INTERFACE SYSTEM Comment:Performed on appssavvy E170 System 06/20/2007 3:57 PM CHIEF SERVICE DISPATCHER Result [facility] us Kj Kelly MD CHEMISTRY ORDERABLES Edited Performing Organization Address City/[facility] Co de Phone Number INTERFACE SYSTEM Refer to clinic/hospital department documented in this encounter Visit Diagnoses Diagnosis Special screening for malignant neoplasm of prostate documented in this encounter Care Teams Operations Logistics Analyst Relationship Specialty Start Date End Date Francisco Enriquez MD PCP - General Student in an Organized Health Care Education/Training Program 06/20/17 documented as of this encounter
--- OUTSIDE RECORDS SUMMARY | 2024-11-14 12:34 | XMS_ITS | Encounter Summary ---
Author Organization [facility] Address [address] [place] [address] Care Team Providers Care Telecommunications Line Installer Name Role Phone Francisco Enriquez MD Primary Care Provider [phone] Encounter Details Date Type Department Care Team (Late st Contact Info) Description 06/20/2007 Orders Only [facility] Primary Care - [address] [place] [address] Kj Kelly MD [address] [facility] [address] [place] [address] Social History Tobacco Use Types Packs/Day Years Used Date Smoking Tobacco: Never Assessed Sex and Gender Information Value Date Recorded Sex Assigned at Not on file 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 [address] D.O.B: 1950 SSN: [id number] Parent/Guardian if applicable: Patient Insurance: [employer] Policy#: [id number] Group #: Best To Call : [phone] Best Time to Call : ANYTIME. May We Leave Message At That Number : YES, LEAVE MESSAGE. Referring to: SLEEP STUDY [facility] ph: [phone] fax: [phone]. PLEASE SCHEDULE FOR: sleep study PATIENT DIAGNOSIS: . 780.57-SLEEP APNEA REQUESTED BY TELEPHONE: 's Response to Referral Request The requested referral is approved. Number of visits approved 3. ORDERING PHYSICIAN : KJ KELLY MD PRIORITY OF REFERRAL: AT PATIENT'S CONVENIENCE. OFFICE VEHICLE REFINISHER & PHONE: jeremiah [phone] FOR SCHEDULING USE ONLY FIRST ATTEMPT Date:JUN [...] ASSESSMENT/PLAN: 780.57-SLEEP APNEA LAB ORDERS: Order number: [id number] Test Ordered: SLEEP STUDY V70.0-ROUTINE GENERAL MEDICAL EXAMINATION MEDICATIONS: ECONAZOLE NITRATE EXTERNAL CREAME 1 %, apply twice daily, 30 Dispensed, 1 Fills, status: NEW PRESCRIPTION, 06/20/2007. LAB ORDERS: Order number: [id number] Test Ordered: COMPREHENSIVE METABOLIC PANEL & GFR 1112 Order number: [id number] Test Ordered: TSH (REFLEX FREE T4/FREE T3) 1727 Order number: [id number] Test Ordered: LIPID PANEL 1078 V76.44-SCREEN FOR CA OF PROSTATE LAB ORDERS: Order number: [id number] Test Ordered: PSA, TOTAL 1002 V76.51-SCREEN FOR CA OF COLON LAB ORDERS: Order number: [id number] Test Ordered: COLONOSCOPY SPECIALTY REFERRAL: DERMATOLOGY Dr. Jason Scott ph. [phone] fax: [phone]. HEALTH MAINTENANCE: LAST PROSTATE EXAM: 1999. DISCUSSED [...] on filedocumented in this encounter Care Teams Telecommunications Line Installer Relationship Specialty Start Date End Date Francisco Enriquez MD PCP - General Student in an Organized Health Care Education/Training Program 06/20/17 documented as of this encounter
--- OUTSIDE RECORDS SUMMARY | 2024-11-14 12:34 | XMS_ITS | Encounter Summary ---
Author Organization [facility] Address [address] [place] [address] Care Team Providers Care Cabinet Abrasive Sandblaster Name Role Phone Frnacisco Enriquez MD Primary Care Provider [phone] Encounter Details Date Type Department Care Team (Late st Contact Info) Description 07/09/2007 Orders Only [facility] Primary Care - [address] [place] [address] Kj Kelly MD [address] [place] [address] Social History Tobacco Use Types Packs/Day Years Used Date Smoking Tobacco: Never Assessed Sex and Gender Information Value Date Recorded Sex Assigned at Not on file 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 LAST VISIT: 06/20/07 PCP: cha. ALTERNATIVE PHONE NUMBER: [phone] WHO CALLED: Patient called. CURRENT ALLERGY LIST: NO KNOWN DRUG ALLERGY PHARMACY NUMBER:[phone] PROBLEMS: CONGESTION: Patient complains of sinus congestion, [...] on filedocumented in this encounter Care Teams Cabinet Abrasive Sandblaster Relationship Specialty Start Date End Date Francisco Enriquez MD PCP - General Student in an Organized Health Care Education/Training Program 06/20/17 documented as of this encounter
[2024-11-14 12:53] LABS: Prostate Specific Antigen 0.4 ng/mL (< OR = 4.0)
[2024-11-14 14:45] LABS: Hemoglobin A1C 6.2 % (<5.7)
== END 2024-11-14 11:26 | disposition home or self-care (01) ==
PROVIDERS: PCP Internal Medicine; Visit Provider Internal Medicine
DX: Z12.5 Encounter for screening for malignant neoplasm of prostate (principal); E55.9 Vitamin D deficiency, unspecified; E11.9 Type 2 diabetes mellitus without complications; I10 Essential (primary) hypertension; E78.2 Mixed hyperlipidemia; Z79.899 Other long term (current) drug therapy; Z13.29 Encounter for screening for other suspected endocrine disorder
CPT/HCPCS: 36415; 80053; 80061; 82306; 83036; 84153; 84439; 84443; 85025; G0103

== ENCOUNTER 2024-12-31 00:22 | Day surgery (SDC) | payer OTHER, SELFPAY ==
[2024-12-17 13:25] VITALS: BMI 33.7
--- OUTSIDE RECORDS SUMMARY | 2024-12-31 00:25 | XMS_ITS | Clinical Summary ---
Author Organization [facility] Address [address] [place] [address] Care Team Providers Care Leather Colorer Name Role Phone Sony Kumar MD Primary Care Provider [phone] Social History Tobacco Use Types Packs/Day Years [...] 2024 09/28/2021, 02/27/2021, 08/28/2020, Additional history exists RSV Immunization or 60+ Years (1 - 1-dose 75+ series) 02/10/2027 Pneumococcal Vaccine: 50+ Years Completed 09/24/2018, 03/17/2017, 10/04/2011 Meningococcal B Vaccine Aged Out No l onger eligible based on patient's age to complete this topic Meningococcal Vaccine Aged Out No francine nate eligible based on patient's age to complete this topic RSV Immunizations Under 20 Months Aged Out No longer eligible based on patient's age to complete this topic Insurance [facility] Care Teams Leather Colorer Relationship Specialty Start Date End Date Sony Kumar MD [address] [place] [address] PCP - General INTERNAL MEDICINE 04/22/22
--- OUTSIDE RECORDS SUMMARY | 2024-12-31 00:25 | XMS_ITS | Clinical Summary ---
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 Gender Identity Not on file Sexual Orientation [...] MONTHS 10/13/20202019, 09/09/2016, 01/18/2016, Additional history exists COLORECTAL SCREENING 09/19/2021 09/19/2018, 08/15/2014, 08/15/2014, Additional history exists Colorectal Cancer Screening 09/19/2021 INFLUENZA VACCINE (#1) 2025 DIABETES ANNUAL RETINAL EXAM 11/28/2025 11/28/2024, 01/16/2012 PNEUMOCOCCAL VACCINE 50+ YEARS Completed 0 09/24/2018, 03/17/2017, 10/04/2011 Medical Devices Implanted Type Area Site Inspector Device Identifier Shelf Expiration Date Model / Serial / Lot Mesh Plug Perfix [id number] [id number] - [id number] Implanted:Qty : 1 on 11/09/2016 by Isaac Morales MD at [facility] Mesh Left: Inguinal [employer] [id number] 05/09/2021 [id number] / / [id number] Procedures Procedure Name Priority Date/Time Associated Diagnosis Comments HEMOGLOBIN A1C Routine 09/09/2016 11:41 AM CDT Type 2 diabetes mellitus without complication, without long-term current use of insulin ([facility]) MICROALBUMIN/CREATI NINE RATIO, RANDOM UR Routine 01/18/2016 10:36 AM CDT Type 2 diabetes mellitus without complication ([facility]) LIPID PANEL Routine 01/18/2016 10:36 AM CDT Type 2 diabetes mellitus without complication ([facility]) from Last 3 Months or Most Recently Relevant to Health Maintenance Results * (ABNORMAL) HEMOGLOBIN A1C (09/09/2016 11:41 AM CDT) HEMOGLOBIN A1C 7.9(H) 4.0 - 6.0 % 09/09/2016 3:45 PM CDT [facility] Comment:Note: Effective as o f 07/03/2015 a new methodology, Turbidimetric inhibition immunoassay (TINIA),has been implemented. EST. AVG GLUCOSE, A1C 180 mg/dL 09/09/2016 3:45 PM CDT [facility] Blood Venipuncture / Unknown 09/09/2016 11:41 AM CDT 09/09/2016 2:25 PM CDT us Avni Bateman MD CHEMISTRY ORDERABLES Final Re sult [facility] CLIA# [id number] [address] [place] [address] * MICROALBUMIN/CREATININE RATIO, RANDOM UR (01/18/2016 10:36 AM CDT) Creatinine, Urine 233 20 - 370 mg/dL [facility] Comment: Test Performed at: [facility] [address] NEGRO RODRIGUEZ DO,MPH MICROALBUMIN, URINE 1.1 mg/dL [facility] Comment: Reference Range Not established Test Performed at: [facility] [address] NEGRO RODRIGUEZ DO,MPH MICROALBUMIN/CREAT RATIO, UR 5 <30 mcg/mg creat [facility] Comment: The ADA defines abnormalities in albumin [...] URINE ORDERABLES Final Result Performing Organization Address City/State/[facility] [[email or web address]] Co de Phone Number [facility] [address] [place] [address] * LIPID PANEL (01/18/2016 10:36 AM CDT) CHOLESTEROL 157 125 - 200 mg/dL [facility] Comment: Test Performed at: [facility] [address] NEGRO RODRIGUEZ DO,MPH HDL 41 > OR = 40 mg/dL [facility] TRIGLYCERIDE 127 <150 mg/dL [facility] LDL CALCULATED 91 <130 mg/dL (calc) [facility] Comment: Desirable range <100 mg/dL for patients with CHD or diabetes and <70 mg/dL for diabetic patients with known heart disease. CHOL/HDL RATIO 3.8 < OR = 5.0 (calc) [facility] TOTAL NON-HDL CHOL(LDL+VLDL) 116 mg/dL (calc) [facility] Comment: Target for non-HDL cholesterol is 30 mg/dL higher than LDL cholesterol target. Blood specimen (specimen) 01/18/2016 10:36 AM CDT us Avni Bateman MD CHEMISTRY ORDERABLES Final Re sult [facility] [address] [place] [address] from Last 3 Months or Most Recently Relevant to Health Maintenance Insurance Advance Directives For more information, please contact: [phone] Documents on File Type Date Recorded Patient Dog Catcher Expl anation Advance Directive POA 07/08/2014 10:55 [...] 1:29 PM 01/21/2011 11:32 AM Care Teams Carriage Rider Relationship Specialty Start Date End Date Francisco Enriquez MD PCP - General Student in an Organized Health Care Education/Training Program 06/20/17
--- OUTSIDE RECORDS SUMMARY | 2024-12-31 00:25 | XMS_ITS | Encounter Summary ---
Author Organization [employer] Address [address] [place] [address] Care Team Providers Care Business Office Specialist Name Role Phone Francisco Enriquez MD Primary Care Provider [phone] Encounter Details Date Type Department Care Team (Late st Contact Info) Description 07/22/2007 Outpatient [facility] [address] [facility] 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
--- OUTSIDE RECORDS SUMMARY | 2024-12-31 00:25 | XMS_ITS | Clinical Summary ---
Author Organization [facility] Address [address] [place] [address] Care Team Providers Care Fill Manager Name Role Phone Gunjan Madison Tibor C MD Primary Care Provider [phone] Source Comments [facility] Affiliates and Associated Physician Practices is amultiple site organization consisting of ambulatory clinics and hospital sitesin [place], [place], [place] and [place]. This disclosure is being madepursuant to the Care Everywhere program and may not contain all information available regarding this patient. Last updated 18.[facility] [employer] Allergies Active Allergy Reactions Criticality Noted Date Comments Lisinopril Cough Low 01/05/2009 Medications * Be aware that medications may not be up to date on this document. Alwaysverify current medications with the patient. atorvastatin (LIPITOR) 10 MG tabletIndication s:Type 2 diabetes mellitus without complication, without long-term current use of insulin (HCC) Take 1 tablet by mouth once daily 90 tablet 4 04/15/20 20 Active Blood Glucose Monitoring Suppl (ONE TOUCH ULTRA MINI) w/Device KIT Use 1 Each as directed 1 kit 12/18/19 21 Active blood glucose (ONETOUCH ULTRA) test stripIndications :Type 2 diabetes mellitus without complication, without long-term current use of insulin (HCC) Use 1 (one) strip once daily 100 strip 12/24/19 21 Active metFORMIN ER 24hr (GLUCOPHAGE XR) 500 MG tabletIndication s:Type 2 diabetes mellitus without complication, without long-term current use of insulin ([facility]) Take 2 (two) tablets by mouth 2 times daily 360 tablet 03/31/20 21 Active glimepiride (AMARYL) 4 MG tabletIndication s:Type 2 diabetes mellitus without complication, without long-term current use of insulin (HCC) Take 1 (one) tablet by mouth 2 times daily after meals 180 tablet 03/31/20 21 Active chlorthalidone (HYGROTON) 25 MG tabletIndication s:Essential (primary) hypertension Take 1 (one) tablet by mouth once daily 90 tablet 03/31/20 21 Active losartan (COZAAR) 100 MG tabletIndication s:Essential (primary) hypertension Take 1 (one) tablet by mouth once daily Patient needs appointment 90 tablet 04/05/20 21 Active Farxiga 10 MG tablet 10 MG ORALLY DAILY 09/17/19 25 Active latanoprost (Xalatan) 0.005 % ophthalmic solution INSTILL INSTILL ONE DROP INTO BOTH EYES ONCE AT BEDTIME 10/10/19 25 Active potassium chloride ER (Micro-K) 10 MEQ capsule TAKE 1 CAPSULE BY MOUTH FOUR TIMES A DAY. USE WITH CHLORTHALIDONE 09/25/19 25 Active Active Problems Patient Care Coordination No te Formatting of this note migh t be different from the original. Patient enrolled in EpxHTN program to record and monitor BP readings. Problem Noted Date Diagnosed Date Type 2 diabetes mellitus without complications 0 12/19/2016 Overview (09/11/2024): IMO 09/11/2024 Assessment & Plan (04/15/2020 5:49 PM WELDER FIRST CLASS): Doing much better. Continue current medications and advised on lifestyle modifications. Assessment & Plan (07/10/2019 10:05 PM WELDER FIRST CLASS): A1c significantly higher than normal for him, most likely due to dietary indiscretion and lack of activity. He is committed to improving this and will work on it for the next few months. Return in about 3 months (around 10/09/2019) for f/u DM. Assessment & Plan (08/13/2018 10:49 AM WELDER FIRST CLASS): A1c essentially the same as previously. Blood glucose improving at home with improved diet, but still above goal. Will increase glimepiride dose. Return in about 6 weeks (around 09/24/2018) for f/u HTN, f/u DM. Essential (primary) hypertension 12/19/2016 Assessment & Plan (04/15/2020 5:49 PM WELDER FIRST CLASS): Good control on current medications. Continue to monitor Assessment & Plan (07/10/2019 10:05 PM WELDER FIRST CLASS): Also higher than normal. Returning to higher dose of chlorthalidone. Continue to monitor at home. Return in about 3 months (around 10/09/2019) for f/u DM. Assessment & Plan (08/13/2018 10:50 AM WELDER FIRST CLASS): High today. Would prescribe amlodipine, but Mr. Peña has significant history of lower extremity edema, so may not be best option. Will refer to Target BP for now, and consider adding beta-marycruz or spironolactone at next visit, if needed. Obesity (BMI 30-39.9) 07/20/2015 Adenoma of large intestine 08/22/2014 Sleep apnea 06/20/2007 Overview (08/13/2018): On CPAP. Screen for colon cancer History of colon polyps Encounters Date Type Department Care Team Description 12/11/2024 11:30 AM CDT Clinical Support [facility] - Ophthalmology [address] [place] [phone] Jordy Andrew MD Combined forms of age-related cataract of both eyes (Primary Dx) 12/11/2024 11:25 AM CDT [facility] [address] [place] [phone] Jordy Andrew MD Combined forms of age-related cataract of both eyes (Primary Dx) 12/11/2024 10:15 AM CDT [facility] [address] [place] [phone] Jordy Andrew MD Combined forms of age-related cataract of both eyes (Primary Dx) 12/11/2024 Travel 11/28/2024 1:55 PM CDT Clinical Support [facility] [address] [place] [phone] Itz Chau MD Glaucoma suspect of both eyes (Primary Dx) 11/28/2024 1:50 PM CDT Clinical Support [facility] Ophthalmology [address] [place] [phone] Itz Chau MD Glaucoma suspect of both eyes (Primary Dx) 11/28/2024 1:15 PM CDT Office Visit [facility] Ophthalmology [address] [place] [phone] Itz Chau MD Glaucoma suspect of both eyes (Primary Dx) 11/28/2024 Travel from Last 3 Months Immunizations Immunization Administration Dates Next Due INFLUENZA VACCINE 02/27/2021 PNEUMOCOCCAL PPSV23 09/24/2018,10/04/2011 Pneumococcal Pcv13 Conj 03/17/2017 Family History Medical History Relation Name Comments Other Father Fell CAD (Coronary Artery Disease) Mother CVA Mother Status: d Cancer - Other Paternal Grandfather Bone Blindness Neg Hx Glaucoma Neg Hx Macular Degeneration Neg Hx Relation Name Status Comments Brother [...] oz pur e alcohol) every 2-3 months PHQ-2 Answer Date Recorded Patient Health Questionnaire-2 Score 0 11/28/2024 Sex and Gender Information Value Date Recorded Sex Assigned at Not on file Legal Sex Male 5:23 PM WELDER FIRST CLASS Gender Identity Not on file Sexual Orientation Not on file Last Filed Vital Signs Vital Sign Reading Time Taken Comments Blood Pressure 134/86 04/15/2020 3:33 PM WELDER FIRST CLASS Pulse 84 04/15/2020 3:33 PM WELDER FIRST CLASS Temperature 36.2 C (97.1 F) 04/15/2020 3:33 PM WELDER FIRST CLASS Respiratory Rate 12 09/19/2018 3:05 PM CDT Oxygen Saturation 98% 04/15/2020 3:33 PM WELDER FIRST CLASS Inhaled Oxygen Concentration - - Weight 107.6 kg (237 lb 3.2 oz) 04/15/2020 3:33 PM WELDER FIRST CLASS Height 167.6 cm (5' 6) 04/15/2020 3:33 PM WELDER FIRST CLASS Body Mass Index 38.29 04/15/2020 3:33 PM WELDER FIRST CLASS Plan of Treatment Upcoming Encounters Date Type Department Care Team (Latest Contact Info) Description 03/04/2025 12:00 PM CDT Hospital Encounter [facility] SURGERY [address] [place] [phone] Jordy Andrew MD [address] [place] [address] [place] [phone] Surgery General 03/04/2025 12:00 PM CDT - 03/04/2025 1:05 PM CDT Surgery [facility] T[facility]AMB SURGERY [address] [place] [phone] Jordy Andrew MD [address] [place] [address] [place] [phone] Cataract Extraction with Intraocular Lens implantation RIGHT EYE 03/05/2025 10:30 AM CDT Office Visit [facility] - Ophthalmology [address] [place] [phone] Jordy Andrew MD [address] [place] [address] [place] [phone] 03/18/2025 8:30 AM CDT Hospital Encounter [facility]B SURGERY [address] [place] [phone] Jordy Andrew MD [address] [place] [address] [place] [address] Surgery General 03/18/2025 8:30 AM CDT - 03/18/2025 9:35 AM CDT Surgery [facility] TOVA[facility]AMB SURGERY [address] [place] [phone] Jordy Andrew MD [address] [place] [address] [place] [phone] Cataract Extraction with Intraocular Lens implantation LEFT EYE 03/19/2025 10:30 AM CDT [facility] [address] [place] [phone] Jordy Andrew MD [address] [place] [address] [place] [address] Scheduled Procedures Name Priority Associated Diagnoses Date/Ti me EXTRACTION CATARACT WITH INSERTION LENS Combined forms of age-related cataract of both eyes 03/04/2025 12:00 PM CDT EXTRACTION CATARACT WITH INSERTION LENS Combined forms of age-related cataract of both eyes 03/18/2025 8:30 AM CDT Health Maintenance Due Date Last Done Comments COLOGUARD (AGES 45-75) - COLON CA SCREENING 1950 CT COLONOGRAPHY - COLON CA SCREENING 1950 FIT - COLON CA SCREENING 1950 FLEX SIG - COLON CA SCREENING 1950 MEDICARE AWV 12 MONTHS 1950 DTAP/TDAP/TD VACCINES (1 - Tdap) 02/10/1971 ZOSTER VACCINE (1 of 2) 02/10/2002 Respiratory Syncytial Virus (RSV) Vaccine Pt: or over 60 yrs (1 - Risk 60-74 years 1-dose series) 2012 DIABETES-FOOT EXAM WITH MONOFILAMENT 07/10/2020 07/10/2019, 03/20/2018, 03/20/2018, Additional history exists DIABETES-HGB A1C 10/13/2020 04/15/2020, , 11/12/2018, Additional history exists DIABETES-SERUM CREATININE 05/20/2021 05/20/2020, COLON MONITORING 09/20/2023 09/19/2018, 03/2019, 09/19/2018, Additional history exists Colorectal Cancer Screening 09/20/2023 COVID-19 VACCINE ( season) 2024 DIABETES - URINE PROTEIN SCREENING 06/12/2024 INFLUENZA VACCINE (#1) 2025 02/27/2021 DIABETES RETINOPATHY SCREENING 11/28/2026 11/28/2024, 09/03/2020, 01/21/2020 (Done Outside Per Report), Additional history exists COLONOSCOPY - COLON CA SCREENING 09/19/2028 09/19/2018, 09/19/2018, 09/19/2018 HEPATITIS C SCREENING Completed 11/01/2017 PNEUMOCOCCAL VACCINE 50+ Completed 019, 03/17/2017, 10/04/2011 DEPRESSION SCREENING Completed 11/28/2024 HEPATITIS B VACCINE Aged Out No longe [...] < 140/90 Blood Pressure 134/86(2019 3:33 PM WELDER FIRST CLASS) Yes Gunjan Madison Note: Patient enrolled in EpxHTN program to track and monitor at home BP readings. Procedures Procedure Name Priority Date/Time Associated Diagnosis Comments PENTACAM UNI/BI Routine 12/11/2024 11:24 AM CDT Combined forms of age-related cataract of both eyes IOL MASTER Routine 12/11/2024 11:24 AM CDT Combined forms of age-related cataract of both eyes WILKERSON AUTO VISUAL FIELD EXTENDED Routine 11/28/2024 1:45 PM CDT Glaucoma suspect of both eyes OPTIC NERVE ANALYSIS OCT Routine 11/28/2024 1:45 PM CDT Glaucoma suspect of both eyes EYE EXAM 09/03/2020 BASIC METABOLIC PANEL (CALCIUM TOTAL) Routine 05/20/2020 2:19 PM WELDER FIRST CLASS Essential (primary) hypertension HEMOGLOBIN A1C - POINT OF CARE (AMB) [facility] Routine 04/15/2020 Type 2 diabetes mellitus without complication, without long-term current use of insulin ENDOSCOPY, COLON, SCREENING Routine 09/19/2018 1:54 PM CDT HEPATITIS C AB W RFLX VERIFICATION Routine 11/01/2017 1:23 PM CDT Need for hepatitis C screening test from Last 3 Months or Most Recently Relevant to Health Maintenance Results * PENTACAM UNI/BI (12/11/2024 11:24 AM CDT) Anatomical Region Laterality Modality Head External-Camera Photography Narrative 12/11/2024 12:02 PM CDT Images from the original result were not included. Mild irregular astigmatism OU us Jordy Andrew MD OPHTHALMOLOGY SCHED ORD W PACS Final Result * IOL MASTER (12/11/2024 11:24 AM CDT) Anatomical Region Laterality Modality External-Camera Photography Narrative 12/11/2024 12:05 PM CDT Images from the original result were not included. us Jordy Andrew MD OPHTHALMOLOGY SCHED ORD W PACS Final Result * WILKERSON AUTO VISUAL FIELD EXTENDED (11/28/2024 1:45 PM CDT) Anatomical Region Laterality Modality Head External-Camera Photography Narrative 11/28/2024 3:19 PM CDT Images from the original result were not included. Review of [employer]kerson VF 24-2: date: pattern deviation, reliability. (foveal threshold dB), (VFI%), (Mean Deviation dB). 11/28/2024: Full nam OU, Poor reliability due to excessive fixation losses OU and high FP OD. (35 OD, 38 OS), (98% OD, 99% OS), (-0.61 OD, 0.74 OS). Itz Chau MD OPHTHALMOLOGY SCHED ORD W PAC S Edited Result - Final * OPTIC NERVE ANALYSIS OCT (11/28/2024 1:45 PM CDT) Anatomical Region Laterality Modality Head External-Camera Photography Narrative 11/28/2024 3:19 PM CDT Images from the original result were not included. Review of Cirrus OCT-Nerve/GCL: date: (vert C/D), (avg RNFL), (avg GCL), (disc area), (signal strength). 11/28/2024: (0.57 OD, 0.58 OS), (83 OD, 78 OS), (78 OD, 81 OS),(1.76 OD, 1.70 OS), (6/10 OD, 4/10 OS). us Itz Chau MD OPHTHALMOLOGY SCHED ORD W PAC S Edited Result - Final * EYE EXAM (09/03/2020) Anatomical Region Laterality Modality Other Narrative 09/03/2020 Ordered by an unspecified provider. us Scanned Document SCANNING ONLY Final Result * (ABNORMAL) BASIC METABOLIC PANEL (CALCIUM TOTAL) (05/20/2020 2:19 PM WELDER FIRST CLASS) Pathologist [facility] Glucose 126(H) 65 - 99 mg/dL [facility] [...] BLOOD SPECIMEN / Unknown 05/20/2020 2:19 PM WELDER FIRST CLASS 05/20/2020 Narrative Resulting Agency Comment Lab Testing performed at: [facility] [address] [id number] Francisco Enriquez MD LAB - CHEMISTRY ORDERABLES Fi nal Result [facility] [address] [place] [address] * HEMOGLOBIN A1C - POINT OF CARE [...] for surveillance. Procedure Code(s): --- Professional --- 74507, Colonoscopy, flexible; with biopsy, single or multiple --- Technical --- 55262, Colonoscopy, flexible; with biopsy, single or multiple [...] or abscess without bleeding CPT copyright 2017 [employer]. All rights reserved. The codes documented in this report are preliminary and upon oncology rn review may be revised to meet current compliance requirements. __ Francia Prieto MD 09/19/2018 2:33:58 PM This report has been signed electronically. Number of Addenda: 0 Note Initiated On: 09/19/2018 1:54 PM [facility] ENDOSCOPY 09/19/2018 1:54 PM CDT us Francia Vazquez MD GI PROCEDURE ORDERABLES E dited Result - Final [facility] ENDOSCOPY * HEPATITIS C AB W RFLX VERIFICATION (11/01/2017 1:23 PM CDT) Hepatitis C Antibody <0.1 0.0 - 0.9 s/co ratio [facility] INSURANCE BILL Blood BLOOD SPECIMEN / Unknown 11/01/2017 1:23 PM CDT 11/01/2017 Narrative Resulting Agency Comment [facility] [address] [facility] [id number] us Francisco Enriquez MD LAB - CHEMISTRY ORDERABLES Fi nal Result [facility] INSURANCE BILL [address] [place] [address] from Last 3 Months or Most Recently Relevant to Health Maintenance Insurance [employer] AD[employer] PPO Care Teams Fill Manager Relationship Specialty Start Date End Date Sony Kumar MD [address] [place] [address] PCP - General Internal Medicine 11/28/24 Gunjan Madison Care Coordination Specialist Care Management 08/21/18
--- OUTSIDE RECORDS SUMMARY | 2024-12-31 00:25 | XMS_ITS | Encounter Summary ---
Author Organization [employer] Address [address] [place] [address] Care Team Providers Care Demi Chef Name Role Phone Francisco Enriquez MD Primary Care Provider [phone] Encounter Details Date Type Department Care Team (Latest Contact Info) Description 12/04/2008 Outpatient Historical [facility], [address] Avni Bateman MD NO ADDRESS ON FILE Unspecified Essential Hypertension Social History Tobacco Use Types Packs/Day Years Used Date Smoking Tobacco: Never Assessed Sex and Gender Information Value Date Recorded Sex Assigned at Not on file Legal Sex Male 3:07 AM COMPTROLLER Gender Identity Not on file Sexual Orientation Not on file documented as of this encounter Plan of Treatment Not on file documented as of this encounter Visit Diagnoses Diagnosis Unspecified essential hypertension documented in this encounter Care Teams Demi Chef Relationship Specialty Start Date End Date Francisco Enriquez MD PCP - General Student in an Organized Health Care Education/Training Program 06/20/17 documented as of this encounter
--- OUTSIDE RECORDS SUMMARY | 2024-12-31 00:25 | XMS_ITS | Encounter Summary ---
Author Organization [facility] Address [address] [place] [address] Care Team Providers Care Chemical Maker Name Role Phone Francisco Enriquez MD Primary Care Provider Encounter Details Date Type Department Care Team (Late st Contact Info) Description 06/20/[address] [facility] Primary Care - [address] [place] [address] Kj Kelly MD [address] [facility] [address] [place] [address] Social History Tobacco Use Types Packs/Day Years Used Date Smoking Tobacco: Never Assessed Sex and Gender Information Value Date Recorded Sex Assigned at Not on file Legal Sex Male 3:07 AM ACUTE CARE NURSE Gender Identity Not on file Sexual Orientation Not on file documented as of this encounter Progress Notes * Kj Kelly MD - 10/24/2007 5:54 PM CDT SPECIALIST REFERRAL REQUEST DATE: JUN 20, 2007 Note created by: Heather Allison A 01:50 p Patient Name : EFRAIN VAN Address: [address] [facility] [address] D.O.B: 1950 SSN: [id number] Parent/Guardian if applicable: Patient Insurance: [employer] Sm[employer] Policy#: [id number] Group #: Best To Call : [phone] Best Time to Call : ANYTIME. May We Leave Message At That Number : YES, LEAVE MESSAGE. Referring to: SLEEP STUDY [facility] ph: [phone] fax: [phone]. PLEASE SCHEDULE FOR: sleep study PATIENT DIAGNOSIS: . 780.57-SLEEP APNEA REQUESTED BY TELEPHONE: 's Response to Referral Request The requested referral is approved. Number of visits approved 3. ORDERING PHYSICIAN : KJ KELLY MD PRIORITY OF REFERRAL: AT PATIENT'S CONVENIENCE. OFFICE CLINICAL RESEARCH ADMINISTRATOR & PHONE: jeremiah [phone] FOR SCHEDULING USE ONLY FIRST ATTEMPT Date:JUN [...] ASSESSMENT/PLAN: 780.57-SLEEP APNEA LAB ORDERS: Order number: [id number] Test Ordered: SLEEP STUDY V70.0-ROUTINE GENERAL MEDICAL EXAMINATION MEDICATIONS: ECONAZOLE NITRATE EXTERNAL CREAME 1 %, apply twice daily, 30 Dispensed, 1 Fills, status: NEW PRESCRIPTION, 06/20/2007. LAB ORDERS: Order number: [id number] Test Ordered: COMPREHENSIVE METABOLIC PANEL & GFR 1112 Order number: [id number] Test Ordered: TSH (REFLEX FREE T4/FREE T3) 1727 Order number: [id number] Test Ordered: LIPID PANEL 1078 V76.44-SCREEN FOR CA OF PROSTATE LAB ORDERS: Order number: [id number] Test Ordered: PSA, TOTAL 1002 V76.51-SCREEN FOR CA OF COLON LAB ORDERS: Order number: [id number] Test Ordered: COLONOSCOPY SPECIALTY REFERRAL: DERMATOLOGY Dr. Jason Scott ph. [phone] fax: [phone]. HEALTH MAINTENANCE: LAST PROSTATE EXAM: 1999. DISCUSSED [...] on filedocumented in this encounter Care Teams Chemical Maker Relationship Specialty Start Date End Date Francisco Enriquez MD PCP - General Student in an Organized Health Care Education/Training Program 06/20/17 documented as of this encounter
--- OUTSIDE RECORDS SUMMARY | 2024-12-31 00:25 | XMS_ITS | Encounter Summary ---
Author Organization [employer] Address [address] [place] [address] Care Team Providers Care Chair Maker Name Role Phone Francisco Enriquez MD Primary Care Provider [phone] Encounter Details Date Type Department Care Team (Late st Contact Info) Description 01/05/2009 Outpatient Historical [facility], [address] Kj Kelly MD [address] [facility] [address] [place] [address] Routine General Medical Examination at a Health Care Facility Social History Tobacco Use Types Packs/Day Years Used Date Smoking Tobacco: Never Alcohol Use Standard Drinks/Week Comments Yes 0 (1 standard drink = 0.6 oz pur e alcohol) Sex and Gender Information Value Date Recorded Sex Assigned at Not on file Legal Sex Male 3:07 AM SYSTEM MANAGER Gender Identity Not on file Sexual Orientation Not on file documented as of this encounter Plan of Treatment Not on file documented as of this encounter Visit Diagnoses Diagnosis Routine general medical examination at a health care facility documented in this encounter Care Teams Chair Maker Relationship Specialty Start Date End Date Francisco Enriquez MD PCP - General Student in an Organized Health Care Education/Training Program 06/20/17 documented as of this encounter
--- OUTSIDE RECORDS SUMMARY | 2024-12-31 00:25 | XMS_ITS | Encounter Summary ---
Author Organization [facility] Address [address] [place] [address] Care Team Providers Care Mechanical Cad Drafter Name Role Phone Francisco Enriquez MD Primary Care Provider [phone] Encounter Details Date Type Department Care Team (Late st Contact Info) Description 06/20/2007 Outpatient Historical [facility] Primary Care - [address] [place] [address] Kj Kelly MD [address] [facility] [address] [place] [address] Special Screening for Malignant Neoplasm of Prostate Social History Tobacco Use Types Packs/Day Years Used Date Smoking Tobacco: Never Assessed Sex and Gender Information Value Date Recorded Sex Assigned at Not on file Legal Sex Male 3:07 AM COOKER OPERATOR Gender Identity Not on file Sexual Orientation Not on file documented as of this encounter Last Filed Vital Signs Vital Sign Reading Time Taken Comments Blood Pressure 124/86 06/20/2007 11:15 AM COOKER OPERATOR Pulse - - Temperature 36.8 C (98.3 F) 06/20/2007 11:15 AM COOKER OPERATOR Respiratory Rate - - Oxygen Saturation - - Inhaled Oxygen Concentration - - Weight 119.3 kg (263 lb) 06/20/2007 11:15 AM COOKER OPERATOR Height - - Body Mass Index - - documented in this encounter Plan of Treatment Not on file documented as of this encounter Procedures Procedure Name Priority Date/Time Associated Diagnosis Comments TSH WITH REFLEX FT4 AND FT3 Routine 06/20/2007 3:57 PM COOKER OPERATOR PSA Routine 06/20/2007 3:57 PM COOKER OPERATOR LIPID PANEL Routine 06/20/2007 3:57 PM COOKER OPERATOR COMPREHENSIVE METABOLIC PANEL Routine 06/20/2007 3:57 PM COOKER OPERATOR documented in this encounter Results * TSH WITH REFLEX FT4 AND FT3 (06/20/2007 3:57 PM COOKER OPERATOR) TSH 2.62 0.27 - 4.20 uU/mL INTERFACE SYSTEM 06/20/2007 3:57 PM COOKER OPERATOR us Kj Kelly MD CHEMISTRY ORDERABLES Edited INTERFACE SYSTEM Refer to clinic/hospital department * (ABNORMAL) COMPREHENSIVE METABOLIC PANEL (06/20/2007 3:57 PM COOKER OPERATOR) GLUCOSE 111(H) 65 - 99 mg/dL INTERFACE [...] and non- Americans is available on the [facility] Intranet at: [email or web address] Select: Lab Policies and Procedures Select: Reference Ranges - GFR 06/20/2007 3:57 PM COOKER OPERATOR Result [facility] Kj Kelly MD CHEMISTRY ORDERABLES Edited Performing Organization Address [facility] Co de Phone Number INTERFACE SYSTEM Refer to clinic/hospital department * (ABNORMAL) LIPID PANEL (06/20/2007 3:57 PM COOKER OPERATOR) CHOLESTEROL 182 100 - 199 mg/dL INTERFACE SYSTEM TRIGLYCERIDE 158(H) 10 - 149 mg/dL INTERFACE SYSTEM HDL 44 40 - 59 mg/dL INTERFACE SYSTEM CHOL/HDL RATIO 4.1 2.0 - 5.0 INTER FACE SYSTEM LDL CALCULATED 106(H) <=99 mg/dL INTERFACE SYSTEM LIPID PANEL COMMENT See Below INTERFACE SYSTEM Comment: The adult ATP and pediatric NCEP classifications for lipids are available on the [facility] Intranet at: [email or web address] Select: Lab Policies and Procedures,Current Select: Lipid Panel Interpretation 06/20/2007 3:57 PM COOKER OPERATOR Result [facility] Kj Kelly MD CHEMISTRY ORDERABLES Edited Performing Organization Address [facility] Phone Number INTERFACE SYSTEM Refer to clinic/hospital department * PSA (06/20/2007 3:57 PM COOKER OPERATOR) PSA 0.3 0.0 - 4.0 ng/mL INTERFACE SYSTEM Comment:Performed on Health 123 E170 System 06/20/2007 3:57 PM COOKER OPERATOR Result [facility] Kj Kelly MD CHEMISTRY ORDERABLES Edited Performing Organization Address City/[facility] Co de Phone Number INTERFACE SYSTEM Refer to clinic/hospital department documented in this encounter Visit Diagnoses Diagnosis Special screening for malignant neoplasm of prostate documented in this encounter Care Teams Mechanical Cad Drafter Relationship Specialty Start Date End Date Francisco Enriquez MD PCP - General Student in an Organized Health Care Education/Training Program 06/20/17 documented as of this encounter
--- OUTSIDE RECORDS SUMMARY | 2024-12-31 00:25 | XMS_ITS | Encounter Summary ---
Author Organization [facility] Address [address] [place] [address] Care Team Providers Care Health Companion Name Role Phone Francisco Enriquez MD Primary Care Provider [phone] Encounter Details Date Type Department Care Team (Late st Contact Info) Description 06/06/2007 Outpatient Historical [facility] Primary Care - [address] [place] [address] Kj Kelly MD [address] [facility] [address] [place], [place] [id number] Social History Tobacco Use Types Packs/Day Years Used Date Smoking Tobacco: Never Assessed Sex and Gender Information Value Date Recorded Sex Assigned at Not on file 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
--- OUTSIDE RECORDS SUMMARY | 2024-12-31 00:25 | XMS_ITS | Encounter Summary ---
Author Organization [employer] Address [address] [place] [address] Care Team Providers Care Product Marketing Coordinator Name Role Phone Francisco Enriquez MD Primary Care Provider [phone] Encounter Details Date Type Department Care Team (Late st Contact Info) Description 07/20/2007 Outpatient [facility] [address] [facility] 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
--- OUTSIDE RECORDS SUMMARY | 2024-12-31 00:25 | XMS_ITS | Encounter Summary ---
Author Organization [employer] Address [address] [place] [address] Care Team Providers Care Saddle Tree Stitcher Name Role Phone Francisco Enriquez MD Primary Care Provider [phone] Encounter Details Date Type Department Care Team (Late st Contact Info) Description 08/22/2007 Outpatient [facility] [address] [facility]. 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
--- OUTSIDE RECORDS SUMMARY | 2024-12-31 00:25 | XMS_ITS | Encounter Summary ---
Author Organization [facility] Address 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 LAST VISIT: 06/20/07 PCP: cha. ALTERNATIVE PHONE NUMBER: [phone] WHO CALLED: Patient called. CURRENT ALLERGY LIST: NO KNOWN DRUG ALLERGY PHARMACY NUMBER:[phone] PROBLEMS: CONGESTION: Patient complains of sinus congestion, complains of chest congestion, complains of headcongestion. COUGH:Patient complains of cough. green phlegm RUNNY NOSE: Patient complains of runny nose. SECTION 1: REQUESTED ACTION beka 07/09/07 at 08:34 am: MEDICATION REQUEST: pt would like a rx..........................MARCOS DOCTOR`S RESPONSE: ángel 07/09/07 at 10:36 am [...] on filedocumented in this encounter Care Teams Manager Intel Relationship Specialty Start Date End Date Francisco Enriquez MD PCP - General Student in an Organized Health Care Education/Training Program 06/20/17 documented as of this encounter
[2024-12-31 06:47] VITALS: BP 127/67; PULSE 71; RESP 17; TEMP 36.4; O2SAT 97; BMI 33.5
[2024-12-31] MEDS: LACTATED RINGERS 1,000 ML 150 ML IV CONT (06:55)
--- NOTE | 2024-12-31 07:43 | P.PNAN_ITS ---
Anes - Initial Pre Proc Eval Procedure: Operation Date: 12/31/24 08:00 Proposed Procedures p Screening Colonoscopy - Jovanny Ventura DO Date/Time: 12/31/24 07:43 Surgeon: Jovanny Ventura DO Pre Op Diagnosis: Neoplasm screening Patient Data Age: 74 Gender: M Height: 1.65 m Weight: 91.6 kg Last Vital Signs Temp 97.6 F 12/31/24 06:47 Pulse 71 12/31/24 06:47 Resp 17 12/31/24 06:47 BP 127/67 12/31/24 06:47 Pulse Ox 97 12/31/24 06:47 O2 Del Method Room Air 12/31/24 06:47 Allergies Allergy/AdvReac Type Severity Reaction Status Date / Time lisinopril AdvReac Mild Cough Verified 12/31/24 06:46 Home Medications ?Medication ?Instructions ?Recorded ?Confirmed ?Type blood sugar diagnostic (Blood 01/01/21 11/25/24 History Glucose Test strips) cholecalciferol (vitamin D3) 50 100 mcg PO DAILY 06/22/21 12/31/24 History mcg (2,000 unit) capsule aspirin 81 mg tablet,delayed 81 mg PO DAILY 08/16/22 12/31/24 History release (Adult Low Dose Aspirin) CoQ10 60 mg BYMOUTH DAILY 02/28/24 12/31/24 History latanoprost 0.005 % eye drops 1 drp EACH EYE DAILY 07/15/24 12/31/24 History losartan 100 mg tablet See Rx Instructions .Route 08/09/24 12/31/24 Rx .COMPLEX #90 tabs metformin 500 mg tablet,extended See Rx Instructions .Route 08/09/24 12/31/24 Rx release 24 hr .COMPLEX #360 tabs dapagliflozin propanediol 10 mg 10 mg PO DAILY #90 tabs 09/16/24 12/31/24 Rx tablet (Farxiga) chlorthalidone 25 mg tablet See Rx Instructions .Route 11/15/24 12/31/24 Rx .COMPLEX #90 tabs potassium chloride 10 mEq See Rx Instructions .Route 12/23/24 12/31/24 Rx capsule,extended release .COMPLEX #360 caps atorvastatin 10 mg tablet See Rx Instructions .Route 12/26/24 12/31/24 Rx .COMPLEX #100 tabs Laboratory Tests 12/31/24 06:41 POC Capillary Glucose 120 H mg/dl (65-105) Patient hx anesthesia problems: none Family hx anesthesia problems: none Results Review: All pre-operative results and documents have been reviewed as part of the pre- operative evaluation. [facility] Past Medical History Medical History URI (upper respiratory infection) ASHD (arteriosclerotic heart disease) Vision changes Impacted cerumen of left ear Abnormal finding of blood chemistry BMI 32.0-32.9,adult BMI 33.0-33.9,adult Encounter for routine adult health examination without abnormal findings Carotid stenosis Vitamin D deficiency Carotid bruit BMI 36.0-36.9,adult Encounter for Medicare annual wellness exam Ventral hernia ARSEN on CPAP Prostate cancer screening Hx of colonic polyps Colon cancer screening H/O Bryant's palsy Encounter to establish care On remote computer terminal operator drug therapy BMI 37.0-37.9, adult Hyperlipidemia Benign essential hypertension DM type 2 (diabetes mellitus, type 2) Family History Family History Grandparent Bone cancer Mother Heart disease Cerebrovascular accident Social History Social History Smoking status: Never smoker Second hand tobacco smoke exposure: No Substance use type: does not use Lack of Transportation: No Lack of Food: Never True Current Housing: I Have Housing Concerned About Future Housing: No Difficulty Paying Gas/Electric Bills: No Difficulty Paying for Meds: No Currently Unemployed: No Education: Bachelor's Degree Difficulty w/ Childcare or Family Care: No Living arrangements: with family Gender identity (if verbalized by the patient): Male Spiritual care concerns: No Anes - Eval Final PreProcedure Day of Procedure 12/31/24 07:43 Patient weight: obese Lungs: normal air movement Airway: Mallampati scale class II Neurological: alert and oriented Last oral intake: >/= 8 hours ASA classification: III Emergent: no Anesthetic plan: proceed Anesthesia type and monitoring: general GIVS and standard monitoring Results Review: All pre-operative results and documents have been reviewed as part of the pre- operative evaluation. HTN, hyperlipidemia, DM fsbs 120, ARSEN but noncompliant w CPAP. Informed Consent: The patient's anesthetic plan and its attendant risks and benefits were discussed with the patient/family/POA. Questions were solicited and answers provided to the satisfaction of the patient/family/POA.
--- NOTE | 2024-12-31 07:47 | P.HP_ITS ---
H&P: HPI History of Present Illness Date/Time: 12/31/24 07:47 Chief Complaint: history of colon polyps Narrative: this is a 74-year-old man who presents for colonoscopy. He had a colonoscopy about 5 years ago and a polyp was removed. He denies any hematochezia or melena. He denies family history of colon cancer. Review of Systems Review of Systems: All systems reviewed & are unremarkable except as noted in HPI and below Constitutional: Constitutional: Denies chills, Denies fever(s), Denies headache(s) and Denies weight loss Eyes: Eyes: Denies change in vision ENT: Denies dizziness, Denies headache(s), Denies neck mass and Denies throat swelling Cardiovascular: Cardiovascular: Denies chest pain, Denies lightheadedness and Denies dyspnea Respiratory: Respiratory: Denies cough, Denies dyspnea and Denies wheezing Gastrointestinal: Gastrointestinal: Denies abdominal pain, Denies change in bowel habits, Denies nausea and Denies vomiting Genitourinary: Genitourinary: Denies hematuria and Denies dysuria Musculoskeletal: Musculoskeletal: Reports as per HPI Integumentary/Breasts: Skin/Breast: Reports as per HPI Neurologic: Denies dizziness and Denies headache(s) Allergic/Immunologic: Allergic/Immunologic: Denies throat swelling and Denies wheezing FOR[facility]LY [facility] Past Medical History Medical History URI (upper respiratory infection) ASHD (arteriosclerotic heart disease) Vision changes Impacted cerumen of left ear Abnormal finding of blood chemistry BMI 32.0-32.9,adult BMI 33.0-33.9,adult Encounter for routine adult health examination without abnormal findings Carotid stenosis Vitamin D deficiency Carotid bruit BMI 36.0-36.9,adult Encounter for Medicare annual wellness exam Ventral hernia ARSEN on CPAP Prostate cancer screening Hx of colonic polyps Colon cancer screening H/O Bryant's palsy Encounter to establish care On mcc drug therapy BMI 37.0-37.9, adult Hyperlipidemia Benign essential hypertension DM type 2 (diabetes mellitus, type 2) Family History Family History Grandparent Bone cancer Mother Heart disease Cerebrovascular accident Social History Social History Smoking status: Never smoker Second hand tobacco smoke exposure: No Substance use type: does not use Lack of Transportation: No Lack of Food: Never True Current Housing: I Have Housing Concerned About Future Housing: No Difficulty Paying Gas/Electric Bills: No Difficulty Paying for Meds: No Currently Unemployed: No Education: Bachelor's Degree Difficulty w/ Childcare or Family Care: No Living arrangements: with family Gender identity (if verbalized by the patient): Male Spiritual care concerns: No Meds Home Medications and Allergies Home Medications ?Medication ?Instructions ?Recorded ?Confirmed ?Type blood sugar diagnostic (Blood 01/01/21 11/25/24 History Glucose Test strips) cholecalciferol (vitamin D3) 50 100 mcg PO DAILY 06/22/21 12/31/24 History mcg (2,000 unit) capsule aspirin 81 mg tablet,delayed 81 mg PO DAILY 08/16/22 12/31/24 History release (Adult Low Dose Aspirin) CoQ10 60 mg BYMOUTH DAILY 02/28/24 12/31/24 History latanoprost 0.005 % eye drops 1 drp EACH EYE DAILY 07/15/24 12/31/24 History losartan 100 mg tablet See Rx Instructions .Route 08/09/24 12/31/24 Rx .COMPLEX #90 tabs metformin 500 mg tablet,extended See Rx Instructions .Route 08/09/24 12/31/24 Rx release 24 hr .COMPLEX #360 tabs dapagliflozin propanediol 10 mg 10 mg PO DAILY #90 tabs 09/16/24 12/31/24 Rx tablet (Farxiga) chlorthalidone 25 mg tablet See Rx Instructions .Route 11/15/24 12/31/24 Rx .COMPLEX #90 tabs potassium chloride 10 mEq See Rx Instructions .Route 12/23/24 12/31/24 Rx capsule,extended release .COMPLEX #360 caps atorvastatin 10 mg tablet See Rx Instructions .Route 12/26/24 12/31/24 Rx .COMPLEX #100 tabs Allergies Allergy/AdvReac Type Severity Reaction Status Date / Time lisinopril AdvReac Mild Cough Verified 12/31/24 06:46 Vital Signs Vital Signs - 24 hr 12/31/24 06:47 Temperature 97.6 F Pulse Rate 71 Respiratory Rate 17 Blood Pressure 127/67 Pulse Oximetry 97 Oxygen Delivery Room Air Exam Const: General: no acute distress and alert Orientation/consciousness: patient oriented x3 HENMT: Head: normocephalic and atraumatic Ears: hearing grossly normal bilaterally Face/Nose/Sinus: Normal nares present Mouth: Yes Normal oral and palatal mucosa present Eyes: Periorbital: periorbital findings normal Sclera: sclerae normal EOM: EOMs intact bilaterally Neck: Neck: normal visual inspection, no lymphadenopathy and trachea midline Chest: Chest palpation & inspection: normal inspection of the chest Resp: Effort & Inspection: normal respiratory effort Auscultation: clear to auscultation bilaterally Cardio: Jugular venous distension: no JVD Rate: regular rate Rhythm: re gular rhythm Heart sounds: S1 normal heart sound present and S2 normal heart sound present Peripheral pulses: Peripheral pulses 2+ throughout GI: Inspection: normal to inspection GI Palp: Yes Soft to palpation, No Tenderness to palpation present (GI), No Guarding due to palpation present (GI) and No Rebound tenderness present Percussion: Yes normal to percussion Auscultation: normal bowel sounds : General: Yes no CVA tenderness Back/Spine/Pelvis: Back: no CVA tenderness Neuro: General: patient oriented x3, no focal motor deficits and CN's II-XI intact bilaterally Cognition (Neuro): normal cognition Speech: normal speech Motor exam (neuro): 5/5 motor strength present throughout Extrem: General: capillary refill normal and no clubbing, cyanosis or edema Assessment and Plan Assessment and plan (1) Hx of colonic polyps: Code(s): Z86.010 - Personal history of colon polyps Status: Acute Assessment and Plan: I have recommended colonoscopy. I have discussed the procedure, risks, benefits, and alternatives. Questions were answered. Patient is agreeable to proceed.
--- NOTE | 2024-12-31 08:08 | S_PTH ---
PATIENT: Mauricio Peña LOC: [facility] U#:[id number] AGE/SX: 74/M ROOM: RE12/31/[address]: Jovanny Ventura DO : 1950 BED: DIS: 12/31/2024 SPEC #: [id number] RECD: 12/31/24 09:10 STATUS: LEFTY REDannielle #: [id number] MARK: 12/31/24 08:[address]: Jovanny Ventura DEPT: [facility] Surgical RECD BY: Torey Storm ENTERED: 12/31/24 09:10 SP TYPE: Surgical OTHR DR: Sony Kumar MD Tissues: A - Colon Polypectomy Procedures: Hematoxylin and Eosin Stain Gross and Microscopic Level 4
[2024-12-31 08:10] VITALS: BP 105/62; PULSE 66; RESP 16; O2SAT 92
[2024-12-31 08:20] VITALS: BP 100/61; PULSE 64; RESP 19; O2SAT 95
[2024-12-31 08:30] VITALS: BP 104/63; PULSE 64; RESP 21; O2SAT 95
== END 2024-12-31 08:40 | disposition home or self-care (01) ==
PROVIDERS: PCP Internal Medicine; Visit Provider Surgery
PROC: 0DJD8ZZ Inspection of Lower Intestinal Tract, Via Natural or Artificial Opening Endoscopic (ICD-10-PCS; CPT 45378; principal; 2024-12-31 08:00)
DX: Z12.11 Encounter for screening for malignant neoplasm of colon (principal); K63.5 Polyp of colon; K57.30 Diverticulosis of large intestine without perforation or abscess without bleeding; Z79.84 Long term (current) use of oral hypoglycemic drugs; E66.9 Obesity, unspecified; Z68.33 Body mass index [BMI] 33.0-33.9, adult
CPT/HCPCS: 45380; 82948; 88305; J2704; J7120

== ENCOUNTER 2025-02-05 13:56 | Outpatient (CLI) | payer OTHER, SELFPAY ==
--- NOTE | ~2025-02-05 | XR_ITS ---
XR cervical spine 4-5V Indication: M25.512 - Pain in left shoulder Comparison: None Findings: The vertebral heights are intact. No fracture or subluxation. Moderate loss of disc height at C5-6, no fracture identified, no subluxation flexion-extension. Soft tissues unremarkable Impression: No acute abnormality. Reviewed, dictated and finalized at location A. Impression: No acute abnormality.
--- NOTE | ~2025-02-05 | XR_ITS ---
EXAMINATION: XR shoulder LT min 2V, 02/05/2025 14:15 CDT HISTORY: M25.512 - Pain in left shoulder COMPARISON: No comparisons available. Findings: No acute fracture or malalignment. Moderate degenerative changes Soft tissues unremarkable. Impression: No acute fracture or malalignment. Reviewed, dictated and finalized at location A. Impression: No acute fracture or malalignment.
--- OUTSIDE RECORDS SUMMARY | 2025-02-05 14:04 | XMS_ITS | Clinical Summary ---
Author Organization [facility] Address [address] [place] [address] Care Team Providers Care Infrastructure Developer Name Role Phone Gunjan Madison Tibor C MD Primary Care Provider [phone] [facility] Aff[facility]ates and Associated Physician Practices is amultiple site organization consisting of ambulatory clinics and hospital sitesin [place], [place], [place] and [place]. This disclosure is being madepursuant to the Care Everywhere program and may not contain all information available regarding this patient. Last updated 18.[facility] Allergies Active Allergy Reactions Criticality Noted Date [...] complication, without long-term current use of insulin ([facility]) Take 2 (two) tablets by mouth 2 [...] 09/11/2024 Assessment & Plan (04/15/2020 5:49 PM DEICER INSPECTOR ELECTRIC): Doing much better. Continue current medications and advised on lifestyle modifications. Assessment & Plan (07/10/2019 10:05 PM DEICER INSPECTOR ELECTRIC): A1c significantly higher than normal for him, most likely due to dietary indiscretion and lack of activity. He is committed to improving this and will work on it for the next few months. Return in about 3 months (around 10/09/2019) for f/u DM. Assessment & Plan (08/13/2018 10:49 AM DEICER INSPECTOR ELECTRIC): A1c essentially the same as previously. Blood glucose improving at home with improved diet, but still above goal. Will increase glimepiride dose. Return in about 6 weeks (around 09/24/2018) for f/u HTN, f/u DM. Essential (primary) hypertension 12/19/2016 Assessment & Plan (04/15/2020 5:49 PM DEICER INSPECTOR ELECTRIC): Good control on current medications. Continue to monitor Assessment & Plan (07/10/2019 10:05 PM DEICER INSPECTOR ELECTRIC): Also higher than normal. Returning to higher dose of chlorthalidone. Continue to monitor at home. Return in about 3 months (around 10/09/2019) for f/u DM. Assessment & Plan (08/13/2018 10:50 AM DEICER INSPECTOR ELECTRIC): High today. Would prescribe amlodipine, but Mr. 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) 12/11/2024 Travel 11/28/2024 1:55 PM CDT Clinical Support [facility] Ophthalmology [address] [place] [phone] Itz Chau MD Glaucoma suspect of both eyes (Primary Dx) 11/28/2024 1:50 PM CDT Clinical Support [facility] - Ophthalmology [address] [place] [phone] Itz Chau MD Glaucoma suspect of both eyes (Primary Dx) 11/28/2024 1:15 PM CDT Office Visit [facility] - Ophthalmology [address] [place] [phone] Itz Chau MD Glaucoma suspect of both [...] on file Legal Sex Male 5:23 PM DEICER INSPECTOR ELECTRIC Gender Identity Not on file Sexual Orientation Not on file Last Filed Vital Signs Vital Sign Reading Time Taken Comments Blood Pressure 134/86 04/15/2020 3:33 PM DEICER INSPECTOR ELECTRIC Pulse 84 04/15/2020 3:33 PM DEICER INSPECTOR ELECTRIC Temperature 36.2 C (97.1 F) 04/15/2020 3:33 PM DEICER INSPECTOR ELECTRIC Respiratory Rate 12 09/19/2018 3:05 PM CDT Oxygen Saturation 98% 04/15/2020 3:33 PM DEICER INSPECTOR ELECTRIC Inhaled Oxygen Concentration - - Weight 107.6 kg (237 lb 3.2 oz) 04/15/2020 3:33 PM DEICER INSPECTOR ELECTRIC Height 167.6 cm (5' 6) 04/15/2020 3:33 PM DEICER INSPECTOR ELECTRIC Body Mass Index 38.29 04/15/2020 3:33 PM DEICER INSPECTOR ELECTRIC Plan of Treatment Upcoming Encounters Date Type Department Care Team (Latest Contact Info) Description 03/04/2025 9:35 AM CDT Hospital Encounter [facility] TOVA/AMB SURGERY [address] [place] [phone] Jordy Andrew MD [address] [place] [address] [place] [phone] Surgery General 03/04/2025 9:35 AM CDT - 03/04/2025 10:40 AM CDT Surgery [facility] OR TOVA/AMB SURGERY [address] [place] [phone] Jordy Andrew MD [address] [place] [address] [place] [phone] Cataract Extraction with Intraocular Lens implantation RIGHT EYE 03/05/2025 10:30 AM CDT Office Visit [facility] - Ophthalmology [address] [place] [phone] Jordy Andrew MD [address] [place] [address] [place] [phone] 03/18/2025 8:30 AM CDT Hospital Encounter [facility] TOVA[facility]AMB SURGERY [address] [place] [phone] Jordy Andrew MD [address] [place] [address] [place] [phone] Surgery General 03/18/2025 8:30 AM CDT - 03/18/2025 9:35 AM CDT Surgery [facility] OR TOVA/AMB SURGERY [address] [place] [phone] Jordy Andrew MD [address] [place] [address] DE[place] [phone] Cataract Extraction with Intraocular Lens implantation LEFT EYE 03/19/2025 10:30 AM CDT Office Visit [facility] [address] [place] [phone] Jordy Andrew MD [address] [place] [address] DE[place] [address] Scheduled Procedures Name Priority Associated Diagnoses Date/Ti me EXTRACTION CATARACT WITH INSERTION LENS Combined forms of age-related cataract of both eyes 03/04/2025 9:35 AM CDT EXTRACTION CATARACT WITH INSERTION LENS Combined [...] < 140/90 Blood Pressure 134/86(2019 3:33 PM DEICER INSPECTOR ELECTRIC) Yes Gunjan Madison Note: Patient enrolled in [...] PANEL (CALCIUM TOTAL) Routine 05/20/2020 2:19 PM DEICER INSPECTOR ELECTRIC Essential (primary) hypertension HEMOGLOBIN A1C - POINT [...] METABOLIC PANEL (CALCIUM TOTAL) (05/20/2020 2:19 PM DEICER INSPECTOR ELECTRIC) Pathologist [facility] Glucose 126(H) 65 - 99 mg/dL [facility] [...] BLOOD SPECIMEN / Unknown 05/20/2020 2:19 PM DEICER INSPECTOR ELECTRIC 05/20/2020 Narrative Resulting Agency Comment Lab Testing performed at: [facility] [address] [facility] [id number] Francisco Enriquez MD LAB - CHEMISTRY ORDERABLES Fi nal Result [facility] [address] [place] [address] * HEMOGLOBIN A1C - POINT OF CARE (AMB) [facility] (04/15/2020) Hemoglobin A1c POCT 6.2 BLOOD SPECIMEN / Unknown 04/15/2020 Francisco Enriquez MD LAB - POINT OF CARE ORDERABLE S Final Result * ENDOSCOPY, COLON, SCREENING (09/19/2018 1:54 PM CDT) Report Endoscopy POC _ Patient Name: Efrain Peña Procedure Date: 09/19/2018 1:54 PM Date [...] for surveillance. Procedure Code(s): --- Professional --- 57137, Colonoscopy, flexible; with biopsy, single or multiple --- Technical --- 25034, Colonoscopy, flexible; with biopsy, single or multiple [...] or abscess without bleeding CPT copyright 2017 [employer]. All rights reserved. The codes documented in this report are preliminary and upon hand suture winder review may be revised to meet current compliance requirements. __ Francia Prieto MD 09/19/2018 2:33:58 PM This report has been signed electronically. Number of Addenda: 0 Note Initiated On: 09/19/2018 1:54 PM [facility] ENDOSCOPY 09/19/2018 1:54 PM CDT us Francia Vazquez MD GI PROCEDURE ORDERABLES E dited Result - Final [facility] ENDOSCOPY * HEPATITIS C AB W RFLX VERIFICATION (11/01/2017 1:23 PM CDT) Hepatitis C Antibody <0.1 0.0 - 0.9 s/co ratio [facility] INSURANCE BILL Blood BLOOD SPECIMEN / Unknown 11/01/2017 1:23 PM CDT 11/01/2017 Narrative Resulting Agency Comment [facility] [address] [facility] [address] [id number] us Francisco Enriquez MD LAB - CHEMISTRY ORDERABLES Fi nal Result [facility] INSURANCE BILL [address] [place] [address] from Last 3 Months or Most Recently Relevant to Health Maintenance Insurance [facility] MEDICARE ADV PPO SELF PAY NO INSURANCE Member Subscriber Plan / Payer (Ef fective for All Dates) Name:Efrain Peña Member ID:Not on file Relation to Subscriber:Not on file Name:EFRAIN PEÑA Subscriber ID:Not on file (Home) Address: [address] [place] [phone] Payer ID:Not on file Group ID:Not on file Type:Self Pay Address: [place], [place] Care Teams Infrastructure Developer Relationship Specialty Start Date End Date Sony Kumar MD [address] [place] [address] PCP - General Internal Medicine 11/28/24 Gunjan Madison Care Coordination Specialist Care Management 08/21/18
--- OUTSIDE RECORDS SUMMARY | 2025-02-05 14:04 | XMS_ITS | Encounter Summary ---
Author Organization [facility] Address [address] [place] [address] Care Team Providers Care Head Waiter Name Role Phone Francisco Enriquez MD Primary Care Provider [phone] Encounter Details Date Type Department Care Team (Late st Contact Info) Description 06/20/2007 Orders Only [facility] Primary Care - [address] [place] [address] Kj Kelly MD [address] 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 May We Leave Message At That Number : YES, LEAVE MESSAGE. Referring to: SLEEP STUDY [facility] ph: [phone] fax: [phone]. PLEASE SCHEDULE FOR: sleep study PATIENT DIAGNOSIS: . 780.57-SLEEP APNEA REQUESTED BY TELEPHONE: 's Response to Referral Request The requested referral is approved. Number of visits approved 3. ORDERING PHYSICIAN : KJ KELLY MD PRIORITY OF REFERRAL: AT PATIENT'S CONVENIENCE. OFFICE RESEARCH ASSOC & PHONE: jeremiah [phone] FOR SCHEDULING USE ONLY FIRST ATTEMPT Date:JUN [...] ASSESSMENT/PLAN: 780.57-SLEEP APNEA LAB ORDERS: Order number: [id number] Test Ordered: SLEEP STUDY V70.0-ROUTINE GENERAL MEDICAL EXAMINATION MEDICATIONS: ECONAZOLE NITRATE EXTERNAL CREAME 1 %, apply twice daily, 30 Dispensed, 1 Fills, status: NEW PRESCRIPTION, 06/20/2007. LAB ORDERS: Order number: [id number] Test Ordered: COMPREHENSIVE METABOLIC PANEL & GFR 1112 Order number: [id number] Test Ordered: TSH (REFLEX FREE T4/FREE T3) 1727 Order number: [id number] Test Ordered: LIPID PANEL 1078 V76.44-SCREEN FOR CA OF PROSTATE LAB ORDERS: Order number: [id number] Test Ordered: PSA, TOTAL 1002 V76.51-SCREEN FOR CA OF COLON LAB ORDERS: Order number: [id number] Test Ordered: COLONOSCOPY SPECIALTY REFERRAL: DERMATOLOGY Dr. Jason Scott ph. [phone] fax: [phone]. HEALTH MAINTENANCE: LAST PROSTATE EXAM: 1999. DISCUSSED [...] on filedocumented in this encounter Care Teams Head Waiter Relationship Specialty Start Date End Date Francisco Enriquez MD PCP - General Student in an Organized Health Care Education/Training Program 06/20/17 documented as of this encounter
--- OUTSIDE RECORDS SUMMARY | 2025-02-05 14:04 | XMS_ITS | Encounter Summary ---
Author Organization [facility] Address [address] [place] [address] Care Team Providers Care Annealer Helper Name Role Phone Francisco Enriquez MD Primary Care Provider [phone] Encounter Details Date Type Department Care Team (Late st Contact Info) Description 06/06/2007 Outpatient Historical [facility] Primary Care - [address] [place] [address] Kj Kelly MD [address] [facility] [address] [place], [place] [phone] Social History Tobacco Use Types Packs/Day Years Used Date Smoking Tobacco: Never Assessed Sex and Gender Information Value Date Recorded Sex Assigned at Not on file 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
--- OUTSIDE RECORDS SUMMARY | 2025-02-05 14:04 | XMS_ITS | Encounter Summary ---
Author Organization [facility] Address [address] [place] [address] Care Team Providers Care Salmon Troll Fisher Name Role Phone Francisco Enriquez MD Primary Care Provider [phone] Encounter Details Date Type Department Care Team (Late st Contact Info) Description 01/05/2009 Outpatient Historical [facility], [address] Kj Kelly MD [address] [facility] [address] [place] [address] Routine General Medical Examination at a Health Care Facility Social History Tobacco Use Types Packs/Day Years Used Date Smoking Tobacco: Never Alcohol Use Standard Drinks/Week Comments Yes 0 (1 standard drink = 0.6 oz pur e alcohol) Sex and Gender Information Value Date Recorded Sex Assigned at Not on file 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
--- OUTSIDE RECORDS SUMMARY | 2025-02-05 14:04 | XMS_ITS | Encounter Summary ---
Author Organization [facility] Address [address] [place] [address] Care Team Providers Care Teacher [employer]ery [employer] Name Role Phone Francisco Enriquez MD Primary Care Provider [phone] Encounter Details Date Type Department Care Team (Late st Contact Info) Description 08/22/2007 Outpatient [facility] [address] [facility] 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
--- OUTSIDE RECORDS SUMMARY | 2025-02-05 14:04 | XMS_ITS | Encounter Summary ---
Author Organization [facility] Address 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
--- OUTSIDE RECORDS SUMMARY | 2025-02-05 14:04 | XMS_ITS | Clinical Summary ---
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 CLERK Gender Identity Not on file Sexual Orientation [...] 03/17/2017, 10/04/2011 Medical Devices Implanted Type Area Botany Laboratory Assistant Device Identifier Shelf Expiration Date Model / Serial / Lot Mesh Plug Perfix [id number] [id number] - [id number] Implanted:Qty : 1 on 11/09/2016 by Isaac Morales MD at [facility] Mesh Left: Inguinal [employer] [id number] 05/09/2021 [id number] / / [id number] Procedures Procedure Name Priority Date/Time Associated Diagnosis Comments HEMOGLOBIN A1C Routine 09/09/2016 11:41 AM CDT Type 2 diabetes mellitus without complication, without long-term current use of insulin ([facility]/H[facility]) MICROALBUMIN/CREATI NINE RATIO, RANDOM UR Routine 01/18/2016 10:36 AM CDT Type 2 diabetes mellitus without complication ([facility]) LIPID PANEL Routine 01/18/2016 10:36 AM CDT Type 2 diabetes mellitus without complication ([facility]) from Last 3 Months or Most Recently Relevant to Health Maintenance Results * (ABNORMAL) HEMOGLOBIN A1C (09/09/2016 11:41 AM CDT) HEMOGLOBIN A1C 7.9(H) 4.0 - 6.0 % 09/09/2016 3:45 PM CDT [facility] Comment:Note: Effective as o f 07/03/2015 a new methodology, Turbidimetric inhibition immunoassay (TINIA),has been implemented. EST. AVG GLUCOSE, A1C 180 mg/dL 09/09/2016 3:45 PM CDT [facility] Blood Venipuncture / Unknown 09/09/2016 11:41 AM CDT 09/09/2016 2:25 PM CDT us Avni Bateman MD CHEMISTRY ORDERABLES Final Re sult [facility] CLIA# [id number] [address] [place] [address] * MICROALBUMIN/CREATININE RATIO, RANDOM UR (01/18/2016 10:36 AM CDT) Creatinine, Urine 233 20 - 370 mg/dL [facility] Comment: Test Performed at: [facility] [address] NEGRO RODRIGUEZ DO,MPH MICROALBUMIN, URINE 1.1 mg/dL [facility] Comment: Reference Range Not established Test Performed at: [facility])[address] [address] NEGRO RODRIGUEZ DO,MPH MICROALBUMIN/CREAT RATIO, UR 5 <30 mcg/mg creat [facility] Comment: The ADA defines abnormalities in albumin [...] URINE ORDERABLES Final Result Performing Organization Address City/State/[facility] Co de Phone Number [facility] [address] [place] [address] * LIPID PANEL (01/18/2016 10:36 AM CDT) CHOLESTEROL 157 125 - 200 mg/dL [facility] Comment: Test Performed at: [facility])[address] [address] NEGRO RODRIGUEZ DO,MPH HDL 41 > OR = 40 mg/dL [facility] TRIGLYCERIDE 127 <150 mg/dL [facility] LDL CALCULATED 91 <130 mg/dL (calc) [facility] Comment: Desirable range <100 mg/dL for patients with CHD or diabetes and <70 mg/dL for diabetic patients with known heart disease. CHOL/HDL RATIO 3.8 < OR = 5.0 (calc) [facility] TOTAL NON-HDL CHOL(LDL+VLDL) 116 mg/dL (calc) [facility] Comment: Target for non-HDL cholesterol is 30 mg/dL higher than LDL cholesterol target. Blood specimen (specimen) 01/18/2016 10:36 AM CDT us Avni Bateman MD CHEMISTRY ORDERABLES Final Re sult [facility] [address] [place] [address] from Last 3 Months or Most Recently Relevant to Health Maintenance Insurance Advance Directives For more information, please contact: [phone] Documents on File Type Date Recorded Patient Hr Clerk Expl anation Advance Directive POA 07/08/2014 10:55 [...] 1:29 PM 01/21/2011 11:32 AM Care Teams Parts Department Manager Relationship Specialty Start Date End Date Francisco Enriquez MD PCP - General Student in an Organized Health Care Education/Training Program 06/20/17
--- OUTSIDE RECORDS SUMMARY | 2025-02-05 14:04 | XMS_ITS | Encounter Summary ---
Author Organization [facility] Address 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 LAST VISIT: 06/20/07 PCP: cha. ALTERNATIVE PHONE NUMBER: [phone] WHO CALLED: Patient called. CURRENT ALLERGY LIST: NO KNOWN DRUG ALLERGY PHARMACY NUMBER:[phone] PROBLEMS: CONGESTION: Patient complains of sinus congestion, [...] on filedocumented in this encounter Care Teams Loom Cleaner Relationship Specialty Start Date End Date Francisco Enriquez MD PCP - General Student in an Organized Health Care Education/Training Program 06/20/17 documented as of this encounter
--- OUTSIDE RECORDS SUMMARY | 2025-02-05 14:04 | XMS_ITS | Encounter Summary ---
Author Organization [facility] Address [address] [place] [address] Care Team Providers Care Roof Shingler Name Role Phone Francisco Enriquez MD Primary Care Provider [phone] Encounter Details Date Type Department Care Team (Late st Contact Info) Description 07/22/2007 Outpatient [facility] [address] [facility] 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
--- OUTSIDE RECORDS SUMMARY | 2025-02-05 14:04 | XMS_ITS | Clinical Summary ---
Author Organization [facility] Address [address] [place] [address] Care Team Providers Care Volunteer Services Manager Name Role Phone Sony Kumar MD Primary Care Provider [phone] Social History Tobacco Use Types Packs/Day Years [...] patient's age to complete this topic Insurance [facility] Care Teams Volunteer Services Manager Relationship Specialty Start Date End Date Sony Kumar MD [address] [place] [address] PCP - General INTERNAL MEDICINE 04/22/22
--- OUTSIDE RECORDS SUMMARY | 2025-02-05 14:04 | XMS_ITS | Encounter Summary ---
Author Organization [employer] Address [address] [place] [address] Care Team Providers Care Financial Cost Analyst Name Role Phone Francisco Enriquez MD Primary Care Provider [phone] Encounter Details Date Type Department Care Team (Late st Contact Info) Description 07/20/2007 Outpatient [facility] [address] [facility] 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
--- OUTSIDE RECORDS SUMMARY | 2025-02-05 14:04 | XMS_ITS | Encounter Summary ---
Author Organization [facility] Address [address] [place] [address] Care Team Providers Care Youth Services Librarian Name Role Phone Francisco Enriquez MD Primary Care Provider [phone] Encounter Details Date Type Department Care Team (Late st Contact Info) Description 06/20/2007 Outpatient [facility] Primary Care - [address] [place] [address] Kj Kelly MD [address] [facility] [address] [place] [address] Special Screening for Malignant Neoplasm of Prostate Social History Tobacco Use Types Packs/Day Years Used Date Smoking Tobacco: Never Assessed Sex and Gender Information Value Date Recorded Sex Assigned at Not on file 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 Gender Identity Not on file Sexual Orientation Not on file documented as of this encounter Last Filed Vital Signs Vital Sign Reading Time Taken Comments Blood Pressure 124/86 06/20/2007 11:15 AM DECK ENGINE OPERATOR Pulse - - Temperature 36.8 C (98.3 F) 06/20/2007 11:15 AM DECK ENGINE OPERATOR Respiratory Rate - - Oxygen Saturation - - Inhaled Oxygen Concentration - - Weight 119.3 kg (263 lb) 06/20/2007 11:15 AM DECK ENGINE OPERATOR Height - - Body Mass Index - - documented in this encounter Plan of Treatment Not on file documented as of this encounter Procedures Procedure Name Priority Date/Time Associated Diagnosis Comments TSH WITH REFLEX FT4 AND FT3 Routine 06/20/2007 3:57 PM DECK ENGINE OPERATOR PSA Routine 06/20/2007 3:57 PM DECK ENGINE OPERATOR LIPID PANEL Routine 06/20/2007 3:57 PM DECK ENGINE OPERATOR COMPREHENSIVE METABOLIC PANEL Routine 06/20/2007 3:57 PM DECK ENGINE OPERATOR documented in this encounter Results * TSH WITH REFLEX FT4 AND FT3 (06/20/2007 3:57 PM DECK ENGINE OPERATOR) TSH 2.62 0.27 - 4.20 uU/mL INTERFACE SYSTEM 06/20/2007 3:57 PM DECK ENGINE OPERATOR us Kj Kelly MD CHEMISTRY ORDERABLES Edited INTERFACE SYSTEM Refer to clinic/hospital department * (ABNORMAL) COMPREHENSIVE METABOLIC PANEL (06/20/2007 3:57 PM DECK ENGINE OPERATOR) GLUCOSE 111(H) 65 - 99 mg/dL [...] and non- Americans is available on the [facility] Intranet at: [email or web address] Select: Lab Policies and Procedures Select: Reference Ranges - GFR 06/20/2007 3:57 PM DECK ENGINE OPERATOR Result [facility] Kj Kelly MD CHEMISTRY ORDERABLES Edited Performing Organization Address [facility] Co de Phone Number INTERFACE SYSTEM Refer to clinic/hospital department * (ABNORMAL) LIPID PANEL (06/20/2007 3:57 PM DECK ENGINE OPERATOR) CHOLESTEROL 182 100 - 199 mg/dL INTERFACE SYSTEM TRIGLYCERIDE 158(H) 10 - 149 mg/dL INTERFACE SYSTEM HDL 44 40 - 59 mg/dL INTERFACE SYSTEM CHOL/HDL RATIO 4.1 2.0 - 5.0 INTER FACE SYSTEM LDL CALCULATED 106(H) <=99 mg/dL INTERFACE SYSTEM LIPID PANEL COMMENT See Below INTERFACE SYSTEM Comment: The adult ATP and pediatric NCEP classifications for lipids are available on the [facility] Intranet at: [email or web address] Select: Lab Policies and Procedures,Current Select: Lipid Panel Interpretation 06/20/2007 3:57 PM DECK ENGINE OPERATOR Result [facility] Kj Kelly MD CHEMISTRY ORDERABLES Edited Performing Organization Address [facility] Phone Number INTERFACE SYSTEM Refer to clinic/hospital department * PSA (06/20/2007 3:57 PM DECK ENGINE OPERATOR) PSA 0.3 0.0 - 4.0 ng/mL INTERFACE SYSTEM Comment:Performed on [employer] E170 System 06/20/2007 3:57 PM DECK ENGINE OPERATOR Result [facility] us Kj Kelly MD CHEMISTRY ORDERABLES Edited Performing Organization Address City/[facility] Co de Phone Number INTERFACE SYSTEM Refer to clinic/hospital department documented in this encounter Visit Diagnoses Diagnosis Special screening for malignant neoplasm of prostate documented in this encounter Care Teams Youth Services Librarian Relationship Specialty Start Date End Date Francisco Enriquez MD PCP - General Student in an Organized Health Care Education/Training Program 06/20/17 documented as of this encounter
== END 2025-02-05 13:57 | disposition home or self-care (01) ==
PROVIDERS: PCP Internal Medicine; Visit Provider Internal Medicine
DX: M25.512 Pain in left shoulder (principal); M54.2 Cervicalgia
CPT/HCPCS: 72050; 73030

== ENCOUNTER 2025-03-24 12:13 | Outpatient (CLI) | payer OTHER, SELFPAY ==
--- OUTSIDE RECORDS SUMMARY | 2025-03-24 13:18 | XMS_ITS | Clinical Summary ---
Author Organization [facility] Address [address] [place] [address] Care Team Providers Care Staple Cutter Name Role Phone Sony Kumar MD Primary Care Provider [phone] Social History Tobacco Use Types Packs/Day Years [...] Wellness Visit 02/10/2017 COVID-19 Vaccine ( season) 2025 09/28/2021, 02/27/2021, 08/28/2020, Additional history exists Influenza Adult (#1) 2025 02/27/2021 RSV Immunization or 60+ Years (1 [...] patient's age to complete this topic Insurance [facility] MEDICARE Care Teams Staple Cutter Relationship Specialty Start Date End Date Sony Kumar MD [address] [place] [address] PCP - General INTERNAL MEDICINE 04/22/22
[2025-03-24 13:28] LABS: Alanine Aminotransferase 26 U/L (6-50); Albumin Level 4.2 g/dL (3.5-5.1); Alkaline Phosphatase 141 U/L (38-126); Anion Gap 10 mmol/L (4-12); Aspartate Amino Transferase 30 U/L (17-59); Bilirubin,Total 1.1 mg/dL (0.2-1.3); Blood Urea Nitrogen 18 mg/dL (9-20); Calcium 9.6 mg/dL (8.4-10.2); Carbon Dioxide 28 mmol/L (22-30); Chloride 99 mmol/L (98-107); Cholesterol 122 mg/dL (0-200); Estimated Glomerular Filt Rate > 60; Glucose 141 mg/dL (65-110); HDL Direct 59 mg/dL; Potassium 3.4 mmol/L (3.4-5.0); Sodium 137 mmol/L (137-145); Total Protein 7.0 g/dL (6.3-8.2); Triglycerides 81 mg/dL (<150)
[2025-03-24 13:29] LABS: Hemoglobin A1C 6.2 % (<5.7)
[2025-03-24 13:40] LABS: Free T4 Free Thyroxine 1.45 ng/dL (0.78-2.19)
[2025-03-24 14:06] LABS: Thyroid Stimulating Hormone 1.820 uIU/mL (0.465-4.680)
== END 2025-03-24 12:14 | disposition home or self-care (01) ==
LOC: ANHLAB 12:15
PROVIDERS: PCP Internal Medicine; Visit Provider Internal Medicine
DX: E78.2 Mixed hyperlipidemia (principal); I10 Essential (primary) hypertension; Z79.899 Other long term (current) drug therapy; Z13.29 Encounter for screening for other suspected endocrine disorder; E11.9 Type 2 diabetes mellitus without complications
CPT/HCPCS: 36415; 80053; 80061; 83036; 84439; 84443